=== PATIENT | female | born 1955 | race African-American/Black ===

== ENCOUNTER 2020-12-17 16:11 | Outpatient (NON) | payer MEDICARE, SELFPAY ==
[2020-12-17 17:39] LABS: Basophils Absolute Auto 0.03 K/mm3 (0.00-0.10); Basophils Percent Auto 0.4 % (0.0-1.0); Eosinophils Absolute Auto 0.05 K/mm3 (0.02-0.50); Eosinophils Percent Auto 0.7 % (1.0-6.0); Hematocrit 28.7 % (35.0-42.0); Hemoglobin 8.6 g/dL (11.7-13.8); Immature Granulocyte Absolute 0.07 K/mm3 (0.00-0.00); Immature Granulocyte Percent A 0.9 % (0.0-0.0); Lymphocytes Absolute Auto 1.04 K/mm3 (1.10-4.50); Mean Corpuscular Hemoglobin 23.7 pg (27.0-31.0); Mean Corpuscular Volume 79.1 fL (78.0-102.0); Mean Platelet Volume 9.4 fl (9.2-11.8); Monocytes Absolute Auto 0.57 K/mm3 (0.10-0.90); Monocytes Percent Auto 7.7 % (2.0-11.0); Neutrophils Absolute Auto 5.7 K/mm3 (1.7-7.2); Neutrophils Percent Auto 76.3 % (50.0-70.0); Nucleated Red Blood Cells Absolute Auto 0.02 K/mm3 (0.00-0.00); Nucleated Red Blood Cells Perc 0.3 % (0-0.0); Platelet Count Result 383 K/mm3 (150-420); Red Blood Count 3.63 M/mm3 (4.20-5.40); Red Cell Distribution Width 34.6 % (11.6-14.4); White Blood Count 7.4 K/mm3 (4.8-10.8)
[2020-12-17 18:07] LABS: Alanine Aminotransferase 54 U/L (14-59); Albumin Level 2.2 g/dL (3.4-5.0); Alkaline Phosphatase 265 U/L (46-116); Anion Gap 10 mmol/L (8-16); Aspartate Amino Transferase 12 U/L (15-37); Bilirubin,Total 0.4 mg/dL (0.00-1.00); Blood Urea Nitrogen 9 mg/dL (7-18); Calcium 7.8 mg/dL (8.5-10.1); Carbon Dioxide 29 mmol/L (21-32); Chloride 102 mmol/L (98-108); Estimated Glomerular Filt Rate > 60; Glucose 117 mg/dL (70-99); Magnesium 1.7 mg/dL (1.8-2.4); Osmolality Calculated 291 mOsm/kg (285-295); Phosphorus 3.6 mg/dL (2.6-4.7); Potassium 4.1 mmol/L (3.5-5.1); Sodium 141 mmol/L (136-145); Total Protein 6.1 g/dL (6.4-8.2)
== END 2020-12-17 16:12 | disposition home or self-care (01) ==
DX: C25.0 Malignant neoplasm of head of pancreas (principal); K28.9 Gastrojejunal ulcer, unspecified as acute or chronic, without hemorrhage or perforation
CPT/HCPCS: 80053; 83735; 84100; 85025; 85060

== ENCOUNTER 2021-04-07 09:02 | Inpatient (IN) | payer MEDICARE, MEDICAID, SELFPAY ==
[2021-04-07] VITALS (66 sets, daily range): BP systolic 107–158; BP diastolic 68–94; PULSE 37–58; RESP 9–21; TEMP 36.1–36.4; O2SAT 90–100; BMI 23.0
--- NOTE | ~2021-04-07 | XR_ITS ---
EXAMINATION: XR abdomen obstructive series DATE: 04/13/2021 11:31 INDICATION: Small bowel obstruction TECHNIQUE: Frontal supine and upright views of the abdomen were obtained. COMPARISON: 04/12/2021 FINDINGS: Nasogastric tube tip in proximal side port in the body of the stomach. Multiple surgical clips in rig ht upper quadrant which on prior CT appear to correspond to a prior right nephrectomy.. Pancreatic du ct stent extending transversely across the centrally upper abdomen. There is also a suture line proje cting just to the right of midline in the upper abdomen. Additional suture line in the right lower qu adrant. A couple short segment of persistently dilated gas-filled small bowel in the right upper quadrant and central abdomen. No pneumatosis or free intraperitoneal gas. Cardiomegaly. Linear discoid atelectasi s/scarring in the right middle and lower lung zones. IMPRESSION: 1. Nasogastric tube in the stomach. 2. A couple persistent dilated loops of small bowel consistent with small bowel obstruction. Reviewed, dictated and finalized at location B. TAL MEDIA DESIGNER
--- NOTE | ~2021-04-07 | CT_ITS ---
EXAMINATION: CT abdomen pelvis w con DATE: 04/07/2021 11:39 INDICATION: Generalized abdominal pain. TECHNIQUE: Computed tomography (CT) of the abdomen and pelvis was performed with 100 mL Omnipaque 350 intravenous contrast. Automated exposure control and iterative reconstruction technique were employe d. The dose-length product was 335.75 mGy-cm. COMPARISON: None. FINDINGS: The visualized portions of the lung bases demonstrate mild atelectasis. Emphysema is noted. There is a small right pleural effusion. The heart size is normal. There are coronary artery calcifi cations. There is a moderate-sized pericardial effusion. There is a 5 mm cyst in the liver. There are changes of cholecystectomy. There is a stent in the pancreatic duct. The spleen and adrenal glands a re normal. There are changes of right nephrectomy. There are cysts in left kidney measuring up to 1.8 cm. There is diverticulosis of the colon without evidence of diverticulitis. There are changes of ri ght hemicolectomy. There are dilated loops of small bowel in right abdomen with two transition points in close proximity. There is mild retroperitoneal lymphadenopathy. Body wall edema is noted. There i s trace ascites. There is scarring in anterior abdominal wall at the midline. There is a benign bone island in left superior pubic ramus. There is severe lower lumbar spondylosis. IMPRESSION: 1. Small bowel obstruction. 2. Mild retroperitoneal lymphadenopathy. 3. Small right pleural effusion. 4. Moderate-sized pericardial effusion. Reviewed, dictated and finalized at location B. T METAL ERECTOR
--- NOTE | ~2021-04-07 | XR_ITS ---
EXAMINATION: XR abdomen/kub 1V EXAM DATE: 04/08/2021 06:15 INDICATION: Follow-up SBO . TECHNIQUE: Frontal projection of the upper abdomen, frontal projection lower abdomen/pelvis for inter pretation. Correlation is made to CT abdomen pelvis from yesterday. FINDINGS: There are several loops of severely distended small bowel in the upper abdomen, small bowel obstruction. There is paucity of colonic stool. Contrast within the bladder. There are cholecystecto my clips. There are bony degenerative changes. IMPRESSION: Small bowel obstruction. Reviewed, dictated and finalized at location A. SING MACHINE OPERATOR IMPRESSION: Small bowel obstruction.
--- NOTE | ~2021-04-07 | XR_ITS ---
EXAMINATION: XR abdomen/kub 1V EXAM DATE: 04/09/2021 05:55 INDICATION: sbo, follow-up . TECHNIQUE: Frontal projection(s) of the abdomen for interpretation. Comparison is made to prior exami nation from 04/08/2021. FINDINGS: Feeding tube is in position. There is a pancreatic stent. Bowel anastomosis material and ri ght upper quadrant surgical clips. Several loops of severely distended small bowel again identified, does not appear significantly changed. Paucity of colonic stool and gas. IMPRESSION: Several persistent severely distended air-filled small bowel loops. Reviewed, dictated and finalized at location A. L ARMS REPAIRER IMPRESSION: Several persistent severely distended air-filled small bowel loops .
--- NOTE | ~2021-04-07 | XR_ITS ---
EXAMINATION: XR abdomen NG/feed tube insert DATE: 04/08/2021 14:47 INDICATION: Nasogastric tube placement TECHNIQUE: A supine view of the abdomen and lower chest was obtained for evaluation of feeding tube placement. COMPARISON: KUB dated 04/08/[address] dated 04/07/2021 FINDINGS: Nasogastric tube tip in proximal side port in the body of the stomach. Cholecystectomy clips in the r ight upper quadrant. Pancreatic duct stent in expected position extending transversely across the upp er abdomen. There is also an anastomotic suture line in the mid upper abdomen. Persistent dilated gas -filled loops of small bowel in the right upper quadrant consistent with small bowel obstruction. Min imal curvilinear atelectasis/scarring at the right costophrenic angle. Globular enlargement of the ca rdiac silhouette corresponding to a moderate-sized pericardial effusion on prior CT. IMPRESSION: 1. Nasogastric tube in stomach. 2. Persistent dilated gas-filled small bowel in the right upper quadrant consistent with small bowel obstruction. 3. Globular enlargement of the cardiac silhouette corresponding to moderate sized pericardial effusio n on prior CT. Reviewed, dictated and finalized at location A. SPEED PRINTER OPERATOR IMPRESSION: 1. Nasogastric tube in stomach. 2. Persistent dilated gas-filled small bowel in the right upper quadrant consis tent with small bowel obstruction. 3. Globular enlargement of the cardiac silhouette corresponding to moderate siz ed pericardial effusion on prior CT.
--- NOTE | ~2021-04-07 | XR_ITS ---
EXAMINATION: XR abdomen NG/feed tube insert DATE: 04/12/2021 18:59 INDICATION: Nasogastric tube placement. TECHNIQUE: A supine view of the abdomen was obtained. COMPARISON: Abdomen radiographs at 9:14 AM FINDINGS: There are persistently dilated loops of small bowel. The colon is decompressed. The nasogas tric tube tip is in the stomach. There are surgical clips in right abdomen. There is a stent in pancr eatic duct. IMPRESSION: 1. Nasogastric tube tip in the stomach. 2. Persistently dilated small bowel, consistent with small bowel obstruction. Reviewed, dictated and finalized at location A. R FILTRATION TECHNICIAN
--- NOTE | ~2021-04-07 | XR_ITS ---
EXAMINATION: XR abdomen/kub 1V DATE: 04/10/2021 05:54 INDICATION: Small bowel obstruction. TECHNIQUE: A supine view of the abdomen was obtained. COMPARISON: CT abdomen and pelvis 04/07/2021 FINDINGS: There are dilated loops of small bowel. The colon is decompressed. The nasogastric tube tip is in the stomach. There is a stent in the pancreatic duct. Surgical clips in the right upper quadra nt are likely from cholecystectomy. There is a staple line at the stomach. IMPRESSION: 1. Persistently dilated small bowel, consistent with small bowel obstruction. Reviewed, dictated and finalized at location A. CTION FURNACE OPERATOR
--- NOTE | ~2021-04-07 | XR_ITS ---
EXAMINATION: XR abdomen obstructive series EXAM DATE: 04/12/2021 09:19 INDICATION: Follow-up on small-bowel obstruction. TECHNIQUE: Frontal upright projection of the upper abdomen, frontal projection of the lower abdomen f or interpretation. Comparison is made to prior examination from 04/11/2021, 04/10/2021, 04/09/2021. FINDINGS: Feeding tube no longer identified. Several loops of moderately distended small bowel, impr eliezer compared to the oldest available x-ray. Small bowel obstruction as etiology was identified on CT . No free intraperitoneal gas. Pancreatic stent, surgical clips and bowel anastomosis material again noted. IMPRESSION: Couple of moderately distended small bowel loops, mild improvement compared to initial e xam. Reviewed, dictated and finalized at location A. CLOSING MACHINE OPERATOR IMPRESSION: Couple of moderately distended small bowel loops, mild improvement compared to initial exam.
--- NOTE | ~2021-04-07 | XR_ITS ---
EXAMINATION: XR abdomen obstructive series DATE: 04/11/2021 08:49 INDICATION: Small bowel obstruction. TECHNIQUE: Upright and supine views of the abdomen were obtained. COMPARISON: CT abdomen and pelvis 04/07/2021 FINDINGS: There are dilated loops of small bowel. The colon is decompressed. No free intraperitoneal gas. The nasogastric tube tip is in the stomach. Surgical clips in the right upper quadrant are likel y from cholecystectomy. There is a stent in the pancreatic duct. There are staple lines of bowel and stomach. IMPRESSION: 1. Persistently dilated small bowel, consistent with small bowel obstruction. Reviewed, dictated and finalized at location A. ESS CASHIER
--- NOTE | 2021-04-07 09:45 | ECG_ITS ---
Measurements Intervals [place] Rate: 43 P: 53 SC: 153 QRS: 58 QRSD: 94 T: 135 QT: 491 QTc: 417 Interpretive Statements SINUS BRADYCARDIA T WAVE ABNORMALITY IN LATERAL LEADS- CONSIDER ISCHEMIA BASELINE ARTIFACT- V1-V4 ABNORMAL ECG Electronically Signed On 04-07-2021 11:41:38 INSURANCE EXECUTIVE by Jethro Leo D.O.
--- NOTE | 2021-04-07 09:49 | ED.ABDPAIN ---
HPI - Abdominal Pain General Chief Complaint: Altered Mental Status Stated Complaint: AMS,WEAKNESS Time Seen by Provider: 04/07/21 09:15 Source: patient and family Mode of arrival: EMS Limitations: no limitations History of Present Illness HPI narrative: Patient is a 65-year-old female lower abdominal pain, 6 out of 10, nonradiating accompanied by nausea and vomiting that started today. Patient also complained of chest pain, midsternal, tightness, 3 out of 10, nonradiating also started today. According to a family member patient was working, felt weak and when they checked her blood pressure it was in the 80s over 40s accompanied by bradycardia with a heart rate in the 40s. Patient denies any nausea, vomiting, diarrhea, fever or chills. Related Data Allergies Allergy/AdvReac Type Severity Reaction Status Date / Time No Known Allergies Allergy Verified 04/07/21 09:27 Review of Systems Review of Systems: All systems reviewed & are unremarkable except as noted in HPI and below Constitutional: Constitutional: Denies body ache(s), Denies chills, Denies excessive sweating, Denies fatigue, Denies fever(s), Denies headache(s), Denies lethargy, Denies malaise and Denies weight loss Eyes: Eyes: Denies blurry vision, Denies change in vision and Denies loss of vision ENT: Denies dizziness, Denies ear discharge, Denies headache(s), Denies lip swelling, Denies epistaxis, Denies nasal congestion, Denies neck pain, Denies throat swelling and Denies tongue swelling Cardiovascular: Cardiovascular: Denies diaphoresis, Denies rapid heart rate, Denies edema, Denies irregular heart rhythm, Denies lightheadedness, Denies palpitations, Denies dyspnea and Denies dyspnea on exertion Respiratory: Respiratory: Denies chest congestion, Denies cough, Denies hemoptysis, Denies dyspnea and Denies dyspnea on exertion Gastrointestinal: Gastrointestinal: Denies melena, Denies hematochezia, Denies diarrhea, Denies nausea, Denies vomiting and Denies hematemesis Musculoskeletal: Musculoskeletal: Denies abnormal gait, Denies deformity, Denies joint swelling, Denies limited range of motion, Denies neck pain and Denies numbness Neurologic: Denies Abnormal speech present, Denies abnormal gait, Denies confusion, Denies headache(s), Denies focal weakness, Denies loss of vision, Denies numbness, Denies Other visual disturbances and Denies Sensory deficit (Neuro) Psychiatric: Psychiatric: Denies confusion, Denies depression, Denies auditory hallucinations, Denies homicidal ideation and Denies suicidal ideation Endocrine: Endocrine: Denies cold intolerance, Denies excessive sweating, Denies fatigue, Denies heat intolerance and Denies palpitations Hematologic/Lymphatic: Hematologic/Lymphatic: Denies easy bleeding and Denies easy bruising Allergic/Immunologic: Allergic/Immunologic: Denies lip swelling, Denies throat swelling and Denies tongue swelling PMFSH Comments Past medical history: Whipple procedure, nephrectomy, hypertension, multiple cancers , brain surgery Family history: Hypertension diabetes Social history: Non-smoker no EtOH or drug use Exam Const: General: cooperative, comfortable, no acute distress, well developed, alert and awake; No confusion Orientation/consciousness: oriented to person, oriented to place, oriented to time, patient oriented x3 and No confusion Limitations: no limitations Other: Frail HENMT: Head: normal to inspection, normocephalic and atraumatic Ears: hearing grossly normal bilaterally, TM normal on the right and TM normal on the left General nose exam: Normal external nose present, Normal nares present and No nasal discharge present Face and sinus: normal facial exam Mouth: Yes Normal oral and palatal mucosa present, Yes lip normal, Yes tongue normal and Yes oropharynx normal Throat: posterior oropharynx normal, tonsils normal and uvula midline Eyes: General: appearance normal, both eyes and all related structures Pupils: Equal, rou
[2021-04-07] MEDS: PROMETHAZINE HCL 25 MG/ML AMPUL 12.5 MG IV PUSH (10:10)
[2021-04-07] MEDS: LACTATED RINGERS 1,000 ML 999 ML IV CONT (10:13)
[2021-04-07 10:31] LABS: Basophils Percent Auto 0.5 % (0.2-1.2); Eosinophils Percent Auto 0.7 % (0-4.4); Hematocrit 35.1 % (37.0-47.0); Hemoglobin 11.3 g/dL (12.0-15.0); Immature Granulocyte Absolute 0.03 K/mm3 (0.00-0.031); Immature Granulocyte Percent A 0.7 % (0-0.5); Lymphocytes Absolute Auto 0.85 K/mm3 (0.9-3.2); Lymphocytes Percent Auto 20.5 % (18.3-44.2); Mean Corpuscular HGB Conc 32.2 g/dl (32-36); Mean Corpuscular Hemoglobin 27.4 pg (26-34); Mean Corpuscular Volume 85.2 fl (80-100); Mean Platelet Volume 10.5 fl (7.4-10.4); Monocytes Absolute Auto 0.3 K/mm3 (0.1-0.6); Monocytes Percent Auto 7.5 % (2.6-8.5); Neutrophils Absolute Auto 2.9 K/mm3 (1.3-6.7); Neutrophils Percent Auto 70.1 % (45.5-73.1); Platelet Count Result 190 k/mm3 (150-375); Red Blood Count 4.12 M/mm3 (4.2-5.4); Red Cell Distribution Width 17.4 % (11.5-14.5); White Blood Count 4.1 K/mm3 (4.5-10.0)
[2021-04-07 10:40] LABS: Prothrombin Time 13.5 Seconds (11.1-14.7)
[2021-04-07 10:41] LABS: Partial Thromboplastin Time 34.3 SECONDS (22.3-36.8)
[2021-04-07] MEDS: HYDROmorphone HCL INJ (*CRX) 1 MG/ML SYR 0.5 MG IV PUSH ×3 (10:46→22:25)
[2021-04-07 10:48] LABS: Alanine Aminotransferase 76 U/L (4-35); Albumin Level 3.8 g/dL (3.5-5.1); Alkaline Phosphatase 191 U/L (38-126); Anion Gap 7 mmol/L (8-16); Aspartate Amino Transferase 61 U/L (14-36); Bilirubin,Total 0.4 mg/dL (0.2-1.3); Blood Urea Nitrogen 12 mg/dL (7-17); Calcium 8.9 mg/dL (8.4-10.2); Carbon Dioxide 25 mmol/L (22-30); Chloride 110 mmol/L (98-107); Estimated CRCL calculation 41 ml/min; Estimated Glomerular Filt Rate 55; Glucose 125 mg/dL (65-110); Lipase 69 U/L (23-300); Potassium 3.5 mmol/L (3.4-5.0); Sodium 142 mmol/L (137-145)
[2021-04-07 10:58] LABS: Troponin I < 0.012 ng/mL (0.000-0.034)
--- NOTE | 2021-04-07 11:29 | PC.NURSE ---
Assumed care of pt. Bedside report done. Pt lethargic, arouses to voice. HR regular at 44bpm. Pt being taken to CT at this time. Daughter at bedside.
--- NOTE | 2021-04-07 16:02 | PC.NURSE ---
FOXER with GI at bedside seeing patient. Pt is currently refusing NG tube. Pt not experiencing any nausea or vomiting. Pt states she has had an NG tube before, does not want one now. FOXER explained the purpose and encouraged it for treatment and pt continues to refuse at this time.
[2021-04-07] MEDS: LACTATED RINGERS 1,000 ML 100 ML IV CONT (16:12)
--- NOTE | 2021-04-07 16:15 | PM.CNGS ---
Assessment and Plan Assessment and plan (1) Small bowel obstruction: Code(s): K56.609 - Unspecified intestinal obstruction, unspecified as to partial versus complete obstruction Status: Acute Assessment and Plan: This is the reason for our consultation. CT scan reviewed and discussed in detail with the patient. There is evidence of a small bowel obstruction that is likely related to intra-abdominal adhesions. She has had multiple abdominal surgeries in the past, including most recently having a Whipple procedure in November. She is still having abdominal pain on my evaluation in the ER. This would likely resolve without surgery, but the patient is currently refusing conservative treatment with an NG tube. Her noncompliance limits our ability to treat her appropriately, and we discussed at length the importance of NG tube decompression at this time. We will not be providing surgical treatment unless she complies with medical treatment. Dr. Schwartz will also be evaluating the patient and discussing her treatment plan. May consider a Gastrografin small bowel follow through to further evaluate the obstruction. For now, continue NPO status, IV fluids, IV analgesics, and strongly encourage compliance of the NG tube. Thank you for allowing us to see the patient in consultation and we will continue to follow along with you. 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 Bobo Westbrook. She is still dealing with a small abdominal wound that appears stable. Continue local wound care. ER physician has attempted contacting [facility] for possible transfer and appears there is no current bed availability. (3) Bradycardia: Code(s): R00.1 - Bradycardia, unspecified Status: Acute Assessment and Plan: Heart rate in the 40's with stable blood pressure. Chest pain resolved. Troponin negative x 1. (4) Pericardial effusion: Code(s): I31.3 - Pericardial effusion (noninflammatory) Status: Acute Assessment and Plan: Moderate-sized pericardial effusion noted on imaging of an unclear etiology. Additional Plan I have discussed the patient's case and plan of care with Dr. Schwartz. History of Present Illness Consult details Consult date: 04/07/21 Reason for consult: other (Small bowel obstruction) Requesting physician: Larry Jarrett MD Narrative: This is a 65 year-old female with a history of COPD and hypertension, who presented to the ER with complaints of abdominal pain, midsternal chest pain, and generalized weakness. She reports developing lower abdominal pain and nausea this morning while at work. She also reports generalized weakness and diaphoresis. She felt the need to defecate and went to the bathroom. She was unable to have a normal bowel movement and began having severe cramping abdominal pain that was coming in waves and midsternal chest pain. No shortness of breath, difficulty breathing, radiating pain, or vomiting. She works at a [employer] and had her coworker check her vital signs. Reportedly, she had a blood pressure of 80/40's and a heart rate in the 40's. She then presented to the ER for further evaluation. In the ER, her blood pressure has been stable but her heart rate was initially 37. EKG showed sinus bradycardia with T wave abnormality with a heart rate of 43. Troponin normal x 1. CT scan of the abdomen and pelvis showed a small bowel obstruction, moderate-sized pericardial effusion, small right pleural effusion, and mild retroperitoneal lymphadenopathy. Our service was consulted by the ED physician for the findings of the small bowel obstruction. The patient is now seen in the ER. Her heart rate on the metal furrer is still in the 40's and her blood pressure remains stable. Per nursing, she was
--- NOTE | 2021-04-07 18:00 | PM.IMHP ---
H&P: HPI History of Present Illness Date/Time: 04/07/21 18:00 Chief Complaint: Chest and abdominal pain Narrative: This is a very pleasant 65-year-old female with history of COPD, hypertension, and multiple malignancies (kidney, thyroid, and lung cancer) who presented to the emergency department earlier today via EMS from her place of employment for evaluation of chest and abdominal pain. She was in her usual state of health when she got up early this morning and went to work. 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 She went to the bathroom and she held the urge to defecate however she was not able to move her bowels. Additionally she started to feel a pressure or gas-like sensation in her midsternal chest region. While walking out of the bathroom she felt lightheaded, weak, and somewhat diaphoretic. Coworkers took her vital signs and reportedly she was hypotensive with blood pressures in the 80s over 40s and bradycardic with a heart rate in the 40s. With IV fluid rehydration her blood pressures have since stabilized however she continues to be bradycardic. Patient reports to me that her baseline heart rate is somewhere in the 60s or 70s. EKG shows some nonspecific T wave changes and bradycardia. CT scan of the abdomen pelvis showed a small bowel obstruction with a moderate size pericardial effusion and she is being admitted in this setting. At the time my evaluation she feels much better but she continues to have mild abdominal discomfort that comes in waves. She has been passing a small amount of gas but she has not had a bowel movement since arrival. She has history of bowel obstruction in March 2019 requiring adhesiolysis. More recently she had a Whipple procedure due to findings of a pancreatic cystic lesion with concerns for possible malignancy (pathology was benign) done in November 2020 at [place] which was complicated by a postoperative wound infection leaving a large open abdominal wound treated with wound VAC. She denies syncope, fever, chills, sweats, exertional chest pain, orthopnea, PND, palpitations, shortness of breath, and vomiting. Review of Systems Review of Systems: 12 systems were reviewed. No cold or flu symptoms. She denies sick contacts. Since her Whipple she has had lower energy than normal. She reports having several large volume stools yesterday which is unusual for her as she is typically constipated. They were transmission inspector in nature than usual. No blood or mucus in the stool. Except as document, all other systems were reviewed and are negative. [facility] Past Medical History Medical History (Updated 04/07/21 @ 22:18 by Sienna Larsen PA-C) Arteriovenous malformation of brain Cancer of right lung Status post resection Chronic obstructive pulmonary disease History of kidney cancer Status post right nephrectomy. History of small bowel obstruction History of thyroid cancer Status post thyroidectomy. Hypertension Surgical History Surgical History (Updated 04/07/21 @ 22:07 by Sienna Larsen PA-C) History of cholecystectomy History of colectomy History of craniotomy Resection of AV malformation. History of exploratory laparotomy (03/2019) SBO with reported adhesiolysis at [facility]. History of right nephrectomy History of thyroidectomy History of tubal ligation History of Whipple procedure (11/2020) [facility] - due to a reportedly benign pancreatic cyst. Family History Family History Other Breast cancer Carcinoma of colon Daughter Breast cancer Social History Social History (Updated 04/07/21 @ 22:08 by Sienna Larsen PA-C) Social History: Surrogate decision-maker: Bobo Bush and Toni Bush, children. CODE STATUS: Full code. Smoking packs per day: 1 Smoking cigarettes per day: 20.0 Years smoked: 20 Smoking pack-years: 20.00 Smoking status: Former
--- NOTE | 2021-04-07 19:40 | PC.NURSE ---
Called pharmacy to ask for silver gel for patient's ordered wound care. Pharmacy states medication order needs to be put in. Will contact inpatient team for order.
--- NOTE | 2021-04-07 22:14 | ADMGEN ---
This patient, Missy Bush, was admitted to IMU Room 202-01. Patient/family oriented to hospital policies and general routines including ID bracelet, bed and alarms, visiting hours, pain management, procedures, bathroom and other care routines, personal items, smoking policy, room service/diet, and visiting hours. Information on how to activate the Rapid Response Team has been discussed. Patient/Family are encouraged to report perceived risks to care and to ask questions if they do not understand what they are told or what they should do.
[2021-04-07] MEDS: SILVERGEL (ELTA) 45 ML 1 APPLIC TOPICAL (22:33)
[2021-04-08] VITALS (10 sets, daily range): BP systolic 103–135; BP diastolic 64–79; PULSE 45–52; RESP 16–20; TEMP 35.7–36.4; O2SAT 94–100
--- NOTE | 2021-04-08 | ECHO_ITS ---
Patient Info Name: Missy Bush Age: 65 years : 1955 Gender: Female Ht: 65 in Wt: 138 lbs BSA: 1.70 m2 HR: 47 bpm BP: 135 / 72 mmHg Heart Rhythm: Bradycardia Technical Quality: Fair Exam Date: 04/08/2021 11:31 AM Exam Location: [facility] Patient Status: Inpatient Admit Date: 04/07/2021 Staff Ordering Physician: Nirav Villatoro MD Rapid Transit Operator: Sharlene Ramirez RDCS Attending Provider: Terrance Lawson MD Referring Physician: Irving KIM; Exam Type: CA echo doppler color flow Study Info Indications - Bradycardia, Pericardial effusion Complete two-dimensional, color flow and Doppler transthoracic echocardiogram is performed. Summary 1. Complete two-dimensional, color flow and Doppler transthoracic echocardiogram is performed. 2. Left ventricular chamber dimension is normal. 3. Left ventricular systolic function is normal, estimated at 65-70%. 4. There is mildly increased left ventricular wall thickness. 5. The left ventricular diastolic function is grade I diastolic dysfunction. 6. Left atrial chamber dimension is mildly enlarged. 7. There is mild mitral valve regurgitation. 8. There is mild tricuspid valve regurgitation. 9. There is mild pulmonic regurgitation. 10. There is mild to moderate pericardial effusion without clear evidence of tamponade physiology. Left Ventricle Left ventricular chamber dimension is normal. Left ventricular systolic function is normal, estimated at 65-70%. There is mildly increased left ventricular wall thickness. The left ventricular diastolic function is grade I diastolic dysfunction. Right Ventricle Right ventricular chamber dimension is normal. Right ventricular systolic function is normal. Left Atria Left atrial chamber dimension is mildly enlarged. Right Atria Right atrial chamber dimension is normal. Atrial Septum Intact interatrial septum visualized by color flow imaging. Aortic Valve The aortic valve is trileaflet. There is mild aortic valve sclerosis. There is no aortic valve stenosis. There is trace aortic valve regurgitation. Pulmonic Valve The pulmonic valve is normal. There is no pulmonic valve stenosis. There is mild pulmonic regurgitation. Mitral Valve The mitral valve has normal leaflets. There is no mitral valve stenosis. There is mild mitral valve regurgitation. Tricuspid Valve The tricuspid valve leaflets are normal. There is no significant tricuspid valve stenosis. There is mild tricuspid valve regurgitation. No pulmonary hypertension, estimated pulmonary arterial systolic pressure is 26 mmHg. Pericardium/Pleural The pericardium appears normal. There is mild to moderate pericardial effusion without clear evidence of tamponade physiology. Aorta The aortic root size at the sinus of Valsalva is normal. Left Ventricular Outflow Tract Name Value Normal LVOT 2D LVOT Diameter 2.0 cm LVOT Doppler LVOT Peak Gradient 3 mmHg LVOT Mean Gradient 1 mmHg LVOT VTI 21 cm LVOT VTI/AV VTI Rat
[2021-04-08] MEDS: LACTATED RINGERS 1,000 ML 100 ML IV CONT (02:42)
[2021-04-08] MEDS: HYDROmorphone HCL INJ (*CRX) 1 MG/ML SYR 0.5 MG IV PUSH ×3 (02:43→12:17)
[2021-04-08 05:17] LABS: Basophils Percent Auto 0.2 % (0.2-1.2); Eosinophils Absolute Auto 0.1 K/mm3 (0-0.3); Eosinophils Percent Auto 1.2 % (0-4.4); Hematocrit 35.9 % (37.0-47.0); Hemoglobin 11.7 g/dL (12.0-15.0); Immature Granulocyte Absolute 0.01 K/mm3 (0.00-0.031); Immature Granulocyte Percent A 0.2 % (0-0.5); Lymphocytes Percent Auto 25.9 % (18.3-44.2); Mean Corpuscular HGB Conc 32.6 g/dl (32-36); Mean Corpuscular Hemoglobin 27.1 pg (26-34); Mean Corpuscular Volume 83.1 fl (80-100); Mean Platelet Volume 10.9 fl (7.4-10.4); Monocytes Absolute Auto 0.3 K/mm3 (0.1-0.6); Monocytes Percent Auto 7.8 % (2.6-8.5); Neutrophils Absolute Auto 2.7 K/mm3 (1.3-6.7); Neutrophils Percent Auto 64.7 % (45.5-73.1); Platelet Count Result 203 k/mm3 (150-375); Red Blood Count 4.32 M/mm3 (4.2-5.4); White Blood Count 4.2 K/mm3 (4.5-10.0)
[2021-04-08 05:32] LABS: Anion Gap 3 mmol/L (8-16); Blood Urea Nitrogen 8 mg/dL (7-17); Calcium 9.1 mg/dL (8.4-10.2); Carbon Dioxide 26 mmol/L (22-30); Chloride 108 mmol/L (98-107); Estimated CRCL calculation 49 ml/min; Estimated Glomerular Filt Rate > 60; Glucose 105 mg/dL (65-110); Potassium 3.3 mmol/L (3.4-5.0); Sodium 137 mmol/L (137-145)
[2021-04-08 09:18] LABS: Magnesium 1.9 mg/dL (1.6-2.3)
--- NOTE | 2021-04-08 09:58 | PM.CNCAR ---
Assessment and Plan Assessment and plan (1) Bradycardia: Code(s): R00.1 - Bradycardia, unspecified Status: Acute Assessment and Plan: She states that her heart rate is generally in the 60s and 70s. Possibly related to vagal tone. I do not see where her thyroid has been evaluated so will check a TSH and free T4 level. Avoid SA/AV darren agents. 2D echocardiogram Doppler will be ordered and reviewed both for the bradycardia as well as pericardial effusion. Will continue to monitor on telemetry. She is stable for transfer to Medicine with telemetry (2) Pericardial effusion: Code(s): I31.3 - Pericardial effusion (noninflammatory) Status: Acute Assessment and Plan: 2D echocardiogram Doppler to evaluate. No evidence of tamponade clinically (3) Hypertension: Code(s): I10 - Essential (primary) hypertension Status: Acute Assessment and Plan: Blood pressure generally controlled at this point. Again continue to avoid AV and SA darren agents. (4) Chronic obstructive pulmonary disease: Code(s): J44.9 - Chronic obstructive pulmonary disease, unspecified Status: Acute (5) Small bowel obstruction: Code(s): K56.609 - Unspecified intestinal obstruction, unspecified as to partial versus complete obstruction Status: Acute Assessment and Plan: Per general surgery (6) Hypokalemia: Code(s): E87.6 - Hypokalemia Status: Acute Assessment and Plan: KCL 40 mEq IV x1 History of Present Illness History of Present Illness Consult date/time: 04/08/21 09:58 Requesting physician: Larry Jarrett MD Consult reason: Other (Bradycardia, hypotension) Reason For Visit: Small bowel obstruction,bradycardia,hypotension Narrative: Reason consultation: Bradycardia, hypotension Date of service 04/08/2021 Requesting provider: Dr. Jarrett History: Patient is a 65-year-old female who does not have known cardiac history that I am aware of. She does have a history of multiple malignancies as well as COPD and hypertension who presents to the hospital with acute onset of abdominal and chest pain. She was at work where she would suddenly developed abdominal pain. She also had some chest tightness at the time. She tried to go the bathroom but was not able to. She became lightheaded and sweaty and came to the attention of her coworkers. She had her blood pressure checked and it was 80s over 40s and she had a heart rate in the 40s. She came to the hospital for further workup and evaluation. She is found have a small bowel obstruction. She was also in sinus bradycardia with heart rate in the 40s. She currently denies any chest pain. She had an no worsening shortness of breath but does have baseline dyspnea related to her COPD. She does complain of dizziness which she relates to some pain medications he has been receiving. Her abdomen is still hurting. She denies any syncope, paroxysmal nocturnal dyspnea, orthopnea or significant edema at this point. She has had edema following her most recent operation at [place] that this has predominantly resolved. Review of Systems Review of Systems: All systems reviewed & are unremarkable except as noted in HPI and below Constitutional: Constitutional: Denies weakness Eyes: Eyes: Denies blurry vision ENT: Reports Normal hearing present Cardiovascular: Cardiovascular: Reports chest pain Respiratory: Respiratory: Reports dyspnea Gastrointestinal: Gastrointestinal: Reports abdominal pain Genitourinary: Genitourinary: Denies hematuria Musculoskeletal: Musculoskeletal: Denies neck pain Integumentary/Breasts: Skin/Breast: Denies dry skin Neurologic: Denies headache(s) Psychiatric: Psychiatric: Denies anxiety and Denies confusion Endocrine: Endocrine: Denies excessive sweating Hematologic/Lymphatic: Hematologic/Lymphatic: Denies easy bleeding Allergic/Immunologic: Allergic/Immunologic: Denies GI upset
[2021-04-08] MEDS: ONDANSETRON INJ 4 MG/2 ML VIAL IV PUSH ×2 (10:16→21:03)
[2021-04-08] MEDS: ENOXAPARIN 40 MG/0.4 ML SYRINGE SUB-Q (10:16)
[2021-04-08] MEDS: POTASSIUM CHLORIDE INJ 40 MEQ in SODIUM CHLORIDE 0.9% IV 500 ML 130 MEQ IVPB (10:16)
--- NOTE | 2021-04-08 11:18 | PCWOUND ---
WOCN NOTE received consult for abdominal wound. Patient was seen by Nicole Fermin NP and Dr. Ren Schwartz. Dr. Schwartz put in wound care orders for Silver gel application daily to the abdominal wound. No need for wound care nurses at this time.
[2021-04-08 11:38] LABS: T4 Thyroxine 7.55 ug/dL (5.53-11.0)
--- NOTE | 2021-04-08 12:59 | PM.IMPN ---
Progress Note: A&P Assessment and Plan (1) Small bowel obstruction: Code(s): K56.609 - Unspecified intestinal obstruction, unspecified as to partial versus complete obstruction Status: Acute Assessment and Plan: On conservative treatment. Continue to refuse NG tube Reiterated importance of NG tube placement with patient to the visit. General surgery has been consulted and following. (2) Bradycardia: Code(s): R00.1 - Bradycardia, unspecified Status: Acute Assessment and Plan: Persistent sinus bradycardia avoid AV darren blockers. Echocardiogram ordered for pericardial effusion. Discussed with cardiology (3) Pericardial effusion: Code(s): I31.3 - Pericardial effusion (noninflammatory) Status: Acute Assessment and Plan: No signs of tamponade. Echocardiogram ordered (4) Hypertension: Code(s): I10 - Essential (primary) hypertension Status: Acute Assessment and Plan: Blood pressures were reviewed. And remained stable Subjective Date/time seen: 04/08/21 12:59 Interval history: HPI:This is a very pleasant 65-year-old female with history of COPD, hypertension, and multiple malignancies (kidney, thyroid, and lung cancer) who presented to the emergency department earlier today via EMS from her place of employment for evaluation of chest and abdominal pain. She was in her usual state of health when she got up early this morning and went to work. 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 She went to the bathroom and she held the urge to defecate however she was not able to move her bowels. Additionally she started to feel a pressure or gas-like sensation in her midsternal chest region. While walking out of the bathroom she felt lightheaded, weak, and somewhat diaphoretic. Coworkers took her vital signs and reportedly she was hypotensive with blood pressures in the 80s over 40s and bradycardic with a heart rate in the 40s. With IV fluid rehydration her blood pressures have since stabilized however she continues to be bradycardic. Patient reports to me that her baseline heart rate is somewhere in the 60s or 70s. EKG shows some nonspecific T wave changes and bradycardia. CT scan of the abdomen pelvis showed a small bowel obstruction with a moderate size pericardial effusion and she is being admitted in this setting. At the time my evaluation she feels much better but she continues to have mild abdominal discomfort that comes in waves. She has been passing a small amount of gas but she has not had a bowel movement since arrival. She has history of bowel obstruction in March 2019 requiring adhesiolysis. 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 She denies syncope, fever, chills, sweats, exertional chest pain, orthopnea, PND, palpitations, shortness of breath, and vomiting. 04/08/2021 reports abdominal distension no bowel movement nausea and abdominal pain. Discussed NG tube placement and she wants to think about it Review of Systems Review of Systems: All systems reviewed & are unremarkable except as noted in HPI and below (HPI) Exam Narrative: General: Well-developed female in semi-Cornelius position in bed in no acute distress. HEENT: PERRL, EOMI. Sclerae anicteric. Oral mucosa moist. Oropharynx clear. Neck: Supple. Nontender Respiratory: Lungs are clear to auscultation bilaterally. Cardiovascular: Regular rate and rhythm with S1-S2. No murmur, rub, or gallop. Gastrointestinal: Abdomen is soft and distended, mildly tender to palpation throughout. Quiet bowel sounds. Large midline defect from previous open abdominal wound with a sm
--- NOTE | 2021-04-08 14:03 | PM.PNGS ---
Progress Note: A&P Assessment and Plan (1) Small bowel obstruction: Code(s): K56.609 - Unspecified intestinal obstruction, unspecified as to partial versus complete obstruction Status: Acute Assessment and Plan: NG tube was deferred last night due to patient's request. KUB this morning suggested persistent small bowel obstruction. She is having more abdominal pain and nausea today, no signs of bowel function, and appears more distended. Will order an NG tube, patient now agreeable. Continue NPO status and IV fluids. Repeat KUB tomorrow. 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 Westbrook. Small open abdominal wound, which appears stable. Continue local wound care. (3) Bradycardia: Code(s): R00.1 - Bradycardia, unspecified Status: Acute Assessment and Plan: Cardiology consulted. Echo ordered today for bradycardia and pericardial effusion. HR in 40's on my exam. (4) Pericardial effusion: Code(s): I31.3 - Pericardial effusion (noninflammatory) Status: Acute Additional Plan I have discussed the plan of care with Dr. Schwartz. Subjective Subjective Date/Time Seen: 04/08/21 14:03 Patient reports: still having pain, no flatus, no bowel movement and nausea Interval history: Patient seen and examined. She is tearful and appears restless and uncomfortable when entering the room. She reports having worsening abdominal pain through the day today. She feels more bloated and is nauseated. She has not had any vomiting. She denies flatus. Review of Systems Review of Systems: All systems reviewed & are unremarkable except as noted in HPI and below Gastrointestinal: Gastrointestinal: Reports as per HPI and Reports no additional gastrointestinal complaints Exam Const: General: awake, acute distress moderate (abdominal pain, tearful) and uncomfortable Orientation/consciousness: patient oriented x3 Cardio: Rate: bradycardic Rhythm: regular rhythm GI: Inspection: distended GI Palp: Yes Firmness to palpation present (GI), Yes Tenderness to palpation present (GI) (throughout), Yes Guarding due to palpation present (GI), Yes No hepatosplenomegaly present and No Rebound tenderness present Auscultation: absent bowel sounds Skin: General skin exam: normal color Neuro: General: moves all extremities and no focal motor deficits Extrem: General: normal to inspection Psych: Mental Status: mental status grossly normal Insight: Good insight present (Psych) Judgement: Good judgement present (Psych) Objective Data Vital Signs Vital Signs: Vital Signs - 24 hr 04/07/21 14:15 04/07/21 14:30 04/07/21 14:31 Temperature Pulse Rate 44 L 45 L 46 L Respiratory Rate 10 L 9 L 10 L Blood Pressure 136/82 Pulse Oximetry 99 99 98 04/07/21 14:45 04/07/21 15:00 04/07/21 15:01 Temperature Pulse Rate 44 L 48 L Respiratory Rate 11 L 16 12 Blood Pressure 111/93 H Pulse Oximetry 96 93 100 04/07/21 15:15 04/07/21 15:33 04/07/21 15:52 Temperature Pulse Rate 48 L 44 L 48 L Respiratory Rate 10 L 11 L 13 Blood Pressure Pulse Oximetry 99 98 100 04/07/21 16:00 04/07/21 16:01 04/07/21 16:15 Temperature Pulse Rate 56 L 47 L 58 L Respiratory Rate 17 12 10 L Blood Pressure 158/93 H Pulse Oximetry 100 100 04/07/21 16:30 04/07/21 16:31 04/07/21 16:45 Temperature Pulse Rate 50 L 56 L 47 L Respiratory Rate 16 16 11 L Blood Pressure 134/84 Pulse Oximetry 100 99 97 04/07/21 17:00 04/07/21 17:01 04/07/21 17:15 Temperature Pulse Rate 51 L 56 L 49 L Respiratory Rate 11 L 17 9 L Blood Pressure 148/91 H Pulse Oximetry 98 100 98 04/07/21 17:31 04/07/21 18:05 04/07/21 18:15 Temperature Pulse Rate 50 L 50 L 50 L Respiratory
[2021-04-08] MEDS: HYDROmorphone HCL INJ (*CRX) 1 MG/ML SYR IV PUSH ×2 (15:24→21:03)
[2021-04-08] MEDS: SILVERGEL (ELTA) 45 ML 1 APPLIC TOPICAL (15:26)
[2021-04-08 16:20] LABS: Lactic Acid Reflex 1.3 mmol/L (0.7-2.1)
[2021-04-08] MEDS: KCL 40 MEQ/D5/0.9% SOD CHL 1,000 ML 100 ML IV CONT (16:58)
[2021-04-09] VITALS (11 sets, daily range): BP systolic 123–133; BP diastolic 63–80; PULSE 52–61; RESP 16–20; TEMP 35.9–36.9; O2SAT 94–96
[2021-04-09] MEDS: ONDANSETRON INJ 4 MG/2 ML VIAL IV PUSH ×3 (01:10→20:17)
[2021-04-09] MEDS: KCL 40 MEQ/D5/0.9% SOD CHL 1,000 ML 100 ML IV CONT ×2 (03:02→13:53)
[2021-04-09 07:01] LABS: Basophils Percent Auto 0.2 % (0.2-1.2); Eosinophils Percent Auto 0.2 % (0-4.4); Hematocrit 37.3 % (37.0-47.0); Hemoglobin 11.9 g/dL (12.0-15.0); Immature Granulocyte Absolute 0.01 K/mm3 (0.00-0.031); Immature Granulocyte Percent A 0.2 % (0-0.5); Lymphocytes Absolute Auto 0.67 K/mm3 (0.9-3.2); Lymphocytes Percent Auto 15.2 % (18.3-44.2); Mean Corpuscular HGB Conc 31.9 g/dl (32-36); Mean Corpuscular Hemoglobin 26.9 pg (26-34); Mean Corpuscular Volume 84.4 fl (80-100); Mean Platelet Volume 10.9 fl (7.4-10.4); Monocytes Absolute Auto 0.3 K/mm3 (0.1-0.6); Monocytes Percent Auto 7.3 % (2.6-8.5); Neutrophils Absolute Auto 3.4 K/mm3 (1.3-6.7); Neutrophils Percent Auto 76.9 % (45.5-73.1); Platelet Count Result 214 k/mm3 (150-375); Red Blood Count 4.42 M/mm3 (4.2-5.4); Red Cell Distribution Width 17.1 % (11.5-14.5); White Blood Count 4.4 K/mm3 (4.5-10.0)
[2021-04-09 07:27] LABS: Alanine Aminotransferase 51 U/L (4-35); Albumin Level 3.8 g/dL (3.5-5.1); Alkaline Phosphatase 174 U/L (38-126); Anion Gap 8 mmol/L (8-16); Aspartate Amino Transferase 35 U/L (14-36); Bilirubin,Total 0.4 mg/dL (0.2-1.3); Blood Urea Nitrogen 7 mg/dL (7-17); Calcium 8.7 mg/dL (8.4-10.2); Carbon Dioxide 24 mmol/L (22-30); Chloride 110 mmol/L (98-107); Estimated CRCL calculation 49 ml/min; Estimated Glomerular Filt Rate > 60; Glucose 119 mg/dL (65-110); Magnesium 1.8 mg/dL (1.6-2.3); Potassium 4.2 mmol/L (3.4-5.0); Sodium 142 mmol/L (137-145)
[2021-04-09] MEDS: ENOXAPARIN 40 MG/0.4 ML SYRINGE SUB-Q (09:20)
[2021-04-09] MEDS: SILVERGEL (ELTA) 45 ML 1 APPLIC TOPICAL (09:27)
--- NOTE | 2021-04-09 10:46 | PM.IMPN ---
Progress Note: A&P Assessment and Plan (1) Small bowel obstruction: Code(s): K56.609 - Unspecified intestinal obstruction, unspecified as to partial versus complete obstruction Status: Acute Assessment and Plan: On conservative treatment. Continue to refuse NG tube Reiterated importance of NG tube placement with patient to the visit. General surgery has been consulted and following. Status post NG tube placement 04/08/2021 X-ray abdomen with persistent small-bowel obstruction (2) Bradycardia: Code(s): R00.1 - Bradycardia, unspecified Status: Acute Assessment and Plan: Persistent sinus bradycardia avoid AV darren blockers. Echocardiogram ordered for pericardial effusion. Discussed with cardiology Echo 04/08/2021 EF 65-70% grade 1 diastolic dysfunction mild MR/TR/NE mild to moderate pericardial effusion without tamponade (3) Pericardial effusion: Code(s): I31.3 - Pericardial effusion (noninflammatory) Status: Acute Assessment and Plan: No signs of tamponade. Echocardiogram ordered and reviewed (4) Hypertension: Code(s): I10 - Essential (primary) hypertension Status: Acute Assessment and Plan: Blood pressures were reviewed. And remained stable Subjective Date/time seen: 04/09/21 10:46 Interval history: HPI:This is a very pleasant 65-year-old female with history of COPD, hypertension, and multiple malignancies (kidney, thyroid, and lung cancer) who presented to the emergency department earlier today via EMS from her place of employment for evaluation of chest and abdominal pain. She was in her usual state of health when she got up early this morning and went to work. 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 She went to the bathroom and she held the urge to defecate however she was not able to move her bowels. Additionally she started to feel a pressure or gas-like sensation in her midsternal chest region. While walking out of the bathroom she felt lightheaded, weak, and somewhat diaphoretic. Coworkers took her vital signs and reportedly she was hypotensive with blood pressures in the 80s over 40s and bradycardic with a heart rate in the 40s. With IV fluid rehydration her blood pressures have since stabilized however she continues to be bradycardic. Patient reports to me that her baseline heart rate is somewhere in the 60s or 70s. EKG shows some nonspecific T wave changes and bradycardia. CT scan of the abdomen pelvis showed a small bowel obstruction with a moderate size pericardial effusion and she is being admitted in this setting. At the time my evaluation she feels much better but she continues to have mild abdominal discomfort that comes in waves. She has been passing a small amount of gas but she has not had a bowel movement since arrival. She has history of bowel obstruction in March 2019 requiring adhesiolysis. 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 She denies syncope, fever, chills, sweats, exertional chest pain, orthopnea, PND, palpitations, shortness of breath, and vomiting. 04/08/2021 reports abdominal distension no bowel movement nausea and abdominal pain. Discussed NG tube placement and she wants to think about it 04/09/2021 she received NG tube and had been feeling better since then. She still has intermittent abdominal pain no bowel movement no flatness abdominal distention has improved after NG tube placement. Review of Systems Review of Systems: All systems reviewed & are unremarkable except as noted in HPI and below (HPI) Exam Narrative: General: Well-developed female in semi-Cornelius position in bed
[2021-04-09] MEDS: HYDROmorphone HCL INJ (*CRX) 1 MG/ML SYR IV PUSH ×2 (11:10→20:17)
--- NOTE | 2021-04-09 11:25 | PM.PNCARD ---
Progress Note: A&P Assessment and Plan (1) Bradycardia: Code(s): R00.1 - Bradycardia, unspecified Status: Acute Assessment and Plan: She states that her heart rate is generally in the 60s and 70s, Now bradycardic with a rate mostly in the 50s. She tells me that prior to this hospitalization she had been taking her Synthroid hit or miss. Start levothyroxine 50 mcg daily IV for now as she is NPO. Further adjustments to be made per hospitalist service. Cardiology will continue to see this patient on an as-needed basis. Please do not hesitate to contact us with any questions our concerns regarding the care of this patient. We will arrange for outpatient follow-up in our office. (2) Pericardial effusion: Code(s): I31.3 - Pericardial effusion (noninflammatory) Status: Acute Assessment and Plan: 2D echocardiogram Doppler to evaluate. No evidence of tamponade clinically (3) Hypertension: Code(s): I10 - Essential (primary) hypertension Status: Acute Assessment and Plan: Blood pressure generally controlled at this point. Continue to avoid AV and SA darren agents. (4) Chronic obstructive pulmonary disease: Code(s): J44.9 - Chronic obstructive pulmonary disease, unspecified Status: Acute (5) Small bowel obstruction: Onset Date: ~03/2021 Code(s): K56.609 - Unspecified intestinal obstruction, unspecified as to partial versus complete obstruction Status: Acute Assessment and Plan: Per general surgery (6) Hypokalemia: Code(s): E87.6 - Hypokalemia Status: Resolved Assessment and Plan: this has been corrected. Today her potassium is 4.2. Additional Plan Subjective Date/time seen: 04/09/21 11:25 Interval history: Cardiology follow-up for bradycardia Date of service 04/09/2021: Feeling better today, still with lots of NG output. She denies any cardiovascular complaints of any kind. Review of Systems Review of Systems: All systems reviewed & are unremarkable except as noted in HPI and below Constitutional: Constitutional: Denies excessive sweating, Denies headache(s) and Denies weakness Eyes: Eyes: Denies blurry vision ENT: Reports Normal hearing present, Denies headache(s) and Denies neck pain Cardiovascular: Cardiovascular: Reports chest pain and Reports dyspnea Respiratory: Respiratory: Reports dyspnea Gastrointestinal: Gastrointestinal: Reports abdominal pain Genitourinary: Genitourinary: Denies hematuria Musculoskeletal: Musculoskeletal: Denies neck pain Integumentary/Breasts: Skin/Breast: Denies dry skin Neurologic: Reports Normal hearing present, Denies confusion, Denies headache(s) and Denies weakness Psychiatric: Psychiatric: Denies anxiety and Denies confusion Endocrine: Endocrine: Denies excessive sweating Hematologic/Lymphatic: Hematologic/Lymphatic: Denies easy bleeding Allergic/Immunologic: Allergic/Immunologic: Denies GI upset with certain foods Exam Narrative: Alert and oriented. Appears stated age Const: General: no acute distress and uncomfortable; No confusion Orientation/consciousness: No confusion HENMT: General nose exam: no epistaxis Eyes: Sclera: sclerae normal Neck: Neck: supple and no JVD Chest: Other: No reproducible chest wall pain to palpation Resp: Auscultation: diminished lung sounds Cardio: Rate: bradycardic Rhythm: regular rhythm GI: Other: Hypoactive bowel sounds Skin: General skin exam: normal color Neuro: General: No confusion Cranial nerves: Yes Normal hearing present Cognition (Neuro): normal cognition Speech: normal speech Extrem: General: edema (Trivial bilateral lower extremity edema) Psych: Mental Status: mental status grossly normal Objective Data Vital Signs Vital Signs: Vital Signs - 24 hr 04/08/21 12:00 04/08/21 14:00 04/08/21 16:00 Temperature 36.0 C L 36.1 C L Pulse Rate 48 L 50 L 50 L Res
[2021-04-09] MEDS: LEVOTHYROXINE SODIUM INJ 100 MCG/5 ML VIAL 50 MCG IV PUSH (13:54)
--- NOTE | 2021-04-09 15:01 | PM.PNGS ---
Progress Note: A&P Assessment and Plan (1) Small bowel obstruction: Code(s): K56.609 - Unspecified intestinal obstruction, unspecified as to partial versus complete obstruction Status: Acute Assessment and Plan: Feeling better and having good NG tube output. Plain films have not really changed much as yet. Continue NG suction, NPO except ice chips, serial exam and labs. Hopefully will resolve without surgical intervention. (2) Hypothyroidism associated with surgical procedure: Code(s): E89.0 - Postprocedural hypothyroidism Status: Acute Assessment and Plan: Patient had thyroidectomy for cancer and has not been taking her thyroid supplement. Receiving IV thyroxine now. (3) Bradycardia: Code(s): R00.1 - Bradycardia, unspecified Status: Acute Assessment and Plan: Cardiology notes appreciated. No low blood pressure. Echo results noted. Pericardial effusion suggested to be mild or minimal. With stable in the low 50s with the occasional heart rate in the 40s. Subjective Subjective Date/Time Seen: 04/09/21 15:01 Patient reports: feels better, pain is less (No pain medication all night, did take Dilaudid at 11 a.m.), flatus, no bowel movement and afebrile Interval history: Feels much better than yesterday. NG tube is tolerable. Passing some flatus but no BM. Pain has become much less frequent. Review of Systems Review of Systems: All systems reviewed & are unremarkable except as noted in HPI and below Constitutional: Constitutional: Denies body ache(s), Denies chills, Denies fever(s), Denies headache(s) and Denies night sweats Gastrointestinal: Gastrointestinal: Reports as per HPI, Denies GI cramping, Denies heartburn, Denies diarrhea and Denies nausea Exam Const: General: comfortable and no acute distress; No confusion Orientation/consciousness: patient oriented x3 and No confusion GI: Inspection: distended, scar (Open area healing well) and no visible herniation GI Palp: Yes Soft to palpation, Yes Tenderness to palpation present (GI) (Minimal tenderness, no peritoneal signs), No Guarding due to palpation present (GI), No Hernia present, No Palpable mass present, No Ascites present and No Rebound tenderness present Auscultation: absent bowel sounds Neuro: General: patient oriented x3, no focal motor deficits and No confusion Extrem: General: no calf tenderness and no edema Psych: Affect: normal affect Insight: Good insight present (Psych) Judgement: Good judgement present (Psych) Objective Data Vital Signs Vital Signs: Vital Signs - 24 hr 04/08/21 16:00 04/08/21 20:00 04/09/21 00:00 Temperature 36.1 C L 35.7 C L Pulse Rate 50 L 46 L 53 L Respiratory Rate 16 20 Blood Pressure 125/79 131/76 Pulse Oximetry 94 96 04/09/21 01:36 04/09/21 04:19 04/09/21 06:00 Temperature 35.9 C L Pulse Rate 52 L 52 L Respiratory Rate 20 Blood Pressure 127/80 133/71 Pulse Oximetry 95 04/09/21 08:00 04/09/21 08:18 04/09/21 12:00 Temperature Pulse Rate 53 L 54 L Respiratory Rate Blood Pressure Pulse Oximetry 95 04/09/21 14:21 Temperature 36.2 C L Pulse Rate 61 Respiratory Rate 18 Blood Pressure 123/63 Pulse Oximetry 96 Intake/Output Intake/Output: Intake & Output 04/06/21 04/07/21 04/08/21 04/09/21 23:59 23:59 23:59 23:59 Intake Total 1000 1120 2000 Output Total 1150 600 Balance 1000 -30 1400 Meds/Results Medications: Active Medications Generic Name Dose Route Start Last Admin Trade Name Freq PRN Reason Stop Dose Admin Enoxaparin Sodium 40 mg 04/08/21 09:00 04/09/21 09:20 Enoxaparin 40 Mg/0.4 Ml Syringe SUB-Q 40 mg DAILY JUAN M Administration Fentanyl Citrate 12.5 mcg 04/09/21 15:00 Fentanyl Citrate Inj (*Crx) 100 Mcg/2 Ml Vial IV PUSH Q2H PRN Pain Rated 1-3 Hydromorphone HCl 1 mg 04/08/21 14:02 04/09/21 11:10 Hydromorphone Hcl Inj (*Crx) 1 Mg/Ml Syr IV PUSH 1 mg Q2H PRN
[2021-04-09] MEDS: KCL 20 MEQ/D5/0.9% SOD CHL 1,000 ML 100 ML IV CONT (17:47)
[2021-04-10] VITALS (9 sets, daily range): BP systolic 129–146; BP diastolic 73–80; PULSE 53–60; RESP 16–18; TEMP 35.7–36.1; O2SAT 95–99
[2021-04-10] MEDS: KCL 20 MEQ/D5/0.9% SOD CHL 1,000 ML 100 ML IV CONT ×2 (04:10→14:13)
[2021-04-10] MEDS: HYDROmorphone HCL INJ (*CRX) 1 MG/ML SYR IV PUSH ×3 (04:12→20:14)
[2021-04-10 06:00] LABS: Hematocrit 34.9 % (37.0-47.0); Hemoglobin 11.1 g/dL (12.0-15.0); Mean Corpuscular HGB Conc 31.8 g/dl (32-36); Mean Corpuscular Hemoglobin 27.5 pg (26-34); Mean Corpuscular Volume 86.4 fl (80-100); Platelet Count Result 204 k/mm3 (150-375); Red Blood Count 4.04 M/mm3 (4.2-5.4); Red Cell Distribution Width 17.8 % (11.5-14.5); White Blood Count 3.5 K/mm3 (4.5-10.0)
[2021-04-10 06:06] LABS: Anion Gap 5 mmol/L (8-16); Blood Urea Nitrogen 5 mg/dL (7-17); Calcium 8.5 mg/dL (8.4-10.2); Carbon Dioxide 24 mmol/L (22-30); Chloride 113 mmol/L (98-107); Estimated CRCL calculation 45 ml/min; Estimated Glomerular Filt Rate > 60; Glucose 114 mg/dL (65-110); Potassium 3.8 mmol/L (3.4-5.0); Sodium 142 mmol/L (137-145)
[2021-04-10] MEDS: LEVOTHYROXINE SODIUM INJ 100 MCG/5 ML VIAL 50 MCG IV PUSH (06:11)
[2021-04-10] MEDS: ENOXAPARIN 40 MG/0.4 ML SYRINGE SUB-Q (09:07)
[2021-04-10] MEDS: SILVERGEL (ELTA) 45 ML 1 APPLIC TOPICAL (09:07)
--- NOTE | 2021-04-10 15:00 | PM.IMPN ---
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 Schwartz -if no improvement with conservative management over the weekend, patient may need surgery -pain control: P.r.n. fentanyl, Dilaudid -while NPO IV fluids potassium 20 mEq in D5 NS 100 mL per hour # sinus bradycardia -asymptomatic -echocardiogram 04/08/2021: LVEF 65-70%, grade 1 diastolic dysfunction, [id number] pericardial effusion # hypertension -continue monitoring blood pressures -at home uses amlodipine 10 mg, held as she is NPO # hypothyroidism: Continue IV levothyroxine Diet: NPO DVT prophylaxis: Lovenox Code status: Full code Disposition: Pending clinical course, still has NG tube in place and no fluctuance Subjective Date/time seen: 04/10/21 15:00 Patient seen examined. She has very hypoactive bowel sounds. Patient has a complicated history with Whipple procedure for pancreatic cyst. Now she has high risk for adhesions difficult operative solution for small-bowel obstruction. Patient being followed by Dr. Schwartz. If no resolution over the weekend patient may need surgical intervention. Patient of was encouraged to move around, NG tube can be clamped. Patient denies fever, chills, nausea vomiting, diarrhea. She denies flatulence. Review of Systems Review of Systems: All systems reviewed & are unremarkable except as noted in HPI and below Exam Narrative: - GENERAL: Pleasant woman in no distress comfortably in bed. - EYES: EOMI. Anicteric. - HENT: Moist mucous membranes. NG tube in place which is clamped - LUNGS: Clear to auscultation bilaterally, no wheezing, rhonchi, or rales. - CARDIOVASCULAR: Regular rate and rhythm. No murmur. No JVD. - ABDOMEN: Soft, non-tender and non-distended. No palpable masses. Large midline wound dressing in place clean dry intact. Hypoactive bowel sounds throughout. - EXTREMITIES: No edema. Peripheral pulses 2+. Non-tender. - NEUROLOGIC: No focal neurological deficits. CN II-XII grossly intact. - PSYCHIATRIC: Awake, Alert and oriented x 3. Tearful about her medical condition. - SKIN: No rashes or lesions. Warm. - LYMPH: No cervical lymphadenopathy. Objective Data Vital Signs Vital Signs: Vital Signs - 24 hr 04/09/21 16:00 04/09/21 20:05 04/09/21 20:24 Temperature 36.9 C Pulse Rate 57 L 58 L Respiratory Rate 16 16 Blood Pressure 126/73 Pulse Oximetry 94 94 04/10/21 00:05 04/10/21 04:04 04/10/21 04:07 Temperature 36.1 C L Pulse Rate 59 L 58 L 55 L Respiratory Rate 18 Blood Pressure 129/76 Pulse Oximetry 95 04/10/21 08:00 04/10/21 12:00 Temperature Pulse Rate 55 L 55 L Respiratory Rate Blood Pressure Pulse Oximetry Intake/Output Intake/Output: Intake & Output 04/07/21 04/08/21 04/09/21 04/10/21 23:59 23:59 23:59 23:59 Intake Total 1000 1120 2000 2050 Output Total 1150 1750 600 Balance 1000 -30 250 1450 Meds/Results Medications: Active Medications Generic Name Dose Route Start Last Admin Trade Name Freq PRN Reason Stop Dose Admin Enoxaparin Sodium 40 mg 04/08/21 09:00 04/10/21 09:07 Enoxaparin 40 Mg/0.4 Ml Syringe SUB-
--- NOTE | 2021-04-10 17:13 | PM.PNGS ---
Progress Note: A&P Assessment and Plan (1) Small bowel obstruction: Code(s): K56.609 - Unspecified intestinal obstruction, unspecified as to partial versus complete obstruction Status: Acute Assessment and Plan: Feeling better and having good NG tube output. States she wants to get up and walk. Plain films have not really changed much as yet. To my review today's films shows possible improvement compared to 04/09 in that the two loops of SB seen seem to have less air distention. Continue NG suction, NPO except ice chips, serial exam and labs. Hopefully will resolve without surgical intervention. (2) Hypothyroidism associated with surgical procedure: Code(s): E89.0 - Postprocedural hypothyroidism Status: Acute Assessment and Plan: Patient had thyroidectomy for cancer and has not been taking her thyroid supplement. Receiving IV thyroxine now. (3) Bradycardia: Code(s): R00.1 - Bradycardia, unspecified Status: Acute Assessment and Plan: Cardiology notes appreciated. No low blood pressure. Echo results noted. Pericardial effusion suggested to be mild. Heart rate stable in the 50s. Subjective Subjective Date/Time Seen: 04/10/21 17:13 Patient reports: no new complaints, pain is less, no flatus and no bowel movement Interval history: Patient does feel little bit better since having the NG in. Has not noticed any bowel movement or flatus. Does want to try to get up and walk and I encouraged this. Nurse will also let her shower and change the dressing dressing on the small open wound midline of the abdomen after she gets out of the shower. Review of Systems Review of Systems: All systems reviewed & are unremarkable except as noted in HPI and below Constitutional: Constitutional: Reports as per HPI, Denies body ache(s), Denies chills, Denies fatigue, Denies fever(s), Denies headache(s) and Denies night sweats Gastrointestinal: Gastrointestinal: Reports as per HPI, Reports no additional gastrointestinal complaints, Reports abdominal pain, Denies GI cramping, Denies heartburn, Denies diarrhea and Denies nausea Exam Resp: Effort & Inspection: no respiratory distress Auscultation: clear to auscultation bilaterally Cardio: Rate: bradycardic Rhythm: regular rhythm Heart sounds: S1 normal heart sound present and S2 normal heart sound present GI: Inspection: distended, scar (Open area healing well), no visible herniation and other (mildly distended) Auscultation: absent bowel sounds Rectal Exam: deferred Other: Large wide-mouthed scar in the midline with a small < 0.5 cm open wound at the inferior aspect of the scar with scant smith/yellow drainage, no surrounding erythema or warmth. Probed with a cotton tip swab and does not seem to tunnel at all. Extrem: General: normal to inspection, no calf tenderness, no edema and other (minimal trace edema to lower legs) Objective Data Vital Signs Vital Signs: Vital Signs - 24 hr 04/09/21 20:05 04/09/21 20:24 04/10/21 00:05 Temperature 36.9 C Pulse Rate 58 L 59 L Respiratory Rate 16 16 Blood Pressure 126/73 Pulse Oximetry 94 94 04/10/21 04:04 04/10/21 04:07 04/10/21 08:00 Temperature 36.1 C L Pulse Rate 58 L 55 L 55 L Respiratory Rate 18 Blood Pressure 129/76 Pulse Oximetry 95 04/10/21 12:00 04/10/21 15:05 04/10/21 16:00 Temperature 35.7 C L Pulse Rate 55 L 53 L 58 L Respiratory Rate 16 Blood Pressure 146/73 H Pulse Oximetry 99 Intake/Output Intake/Output: Intake & Output 04/07/21 04/08/21 04/09/21 04/10/21 23:59 23:59 23:59 23:59 Intake Total 1000 1120 2000 2050 Output Total 1150 1750 600 Balance 1000 -30 250 1450 Meds/Results Medications: Active Medications Generic Name Dose Route Start Last Admin Trade Name Mauriq PRN Reason Stop Dose Admin Enoxaparin Sodium 40 mg 04/08/21 09:00 04/10/21 09:07 Enoxaparin 40 Mg/0.4 Ml Syringe SUB-Q 40 mg DAILY JUAN M Admin
[2021-04-10] MEDS: ONDANSETRON INJ 4 MG/2 ML VIAL IV PUSH (20:14)
[2021-04-11] VITALS (10 sets, daily range): BP systolic 131–143; BP diastolic 72–81; PULSE 48–61; RESP 14–16; TEMP 35.7–36.6; O2SAT 94–96
[2021-04-11] MEDS: KCL 20 MEQ/D5/0.9% SOD CHL 1,000 ML 100 ML IV CONT ×2 (01:08→12:40)
[2021-04-11] MEDS: HYDROmorphone HCL INJ (*CRX) 1 MG/ML SYR IV PUSH ×6 (05:18→23:21)
[2021-04-11] MEDS: ONDANSETRON INJ 4 MG/2 ML VIAL IV PUSH ×3 (05:18→20:06)
[2021-04-11] MEDS: LEVOTHYROXINE SODIUM INJ 100 MCG/5 ML VIAL 50 MCG IV PUSH (06:20)
[2021-04-11 07:08] LABS: Hematocrit 34.1 % (37.0-47.0); Hemoglobin 10.8 g/dL (12.0-15.0); Mean Corpuscular HGB Conc 31.7 g/dl (32-36); Mean Corpuscular Hemoglobin 27.3 pg (26-34); Mean Corpuscular Volume 86.3 fl (80-100); Mean Platelet Volume 10.8 fl (7.4-10.4); Platelet Count Result 181 k/mm3 (150-375); Red Blood Count 3.95 M/mm3 (4.2-5.4); Red Cell Distribution Width 17.4 % (11.5-14.5)
[2021-04-11 07:32] LABS: Anion Gap 9 mmol/L (8-16); Blood Urea Nitrogen 3 mg/dL (7-17); Calcium 8.5 mg/dL (8.4-10.2); Carbon Dioxide 23 mmol/L (22-30); Chloride 109 mmol/L (98-107); Estimated CRCL calculation 49 ml/min; Estimated Glomerular Filt Rate > 60; Glucose 117 mg/dL (65-110); Potassium 3.5 mmol/L (3.4-5.0); Sodium 141 mmol/L (137-145)
[2021-04-11 07:40] LABS: Prealbumin 12.6 mg/dL (17.6-36.0)
[2021-04-11] MEDS: SILVERGEL (ELTA) 45 ML 1 APPLIC TOPICAL (09:26)
[2021-04-11] MEDS: BISACODYL 10 MG SUPPOSITORY RECTAL (09:26)
[2021-04-11] MEDS: ENOXAPARIN 40 MG/0.4 ML SYRINGE SUB-Q (09:27)
--- NOTE | 2021-04-11 13:36 | PM.PNGS ---
Progress Note: A&P Assessment and Plan (1) Small bowel obstruction: Code(s): K56.609 - Unspecified intestinal obstruction, unspecified as to partial versus complete obstruction Status: Acute Assessment and Plan: Feeling better right now than at 5:00 a.m. this morning and having somewhat less NG tube output in the last 24 hours compared to the previous 24. States she wants to get up and walk. Plain films have not really changed much as yet. To my review today's films shows possible improvement compared to 04/10 in that the two loops of SB seen seem to have less air distention. however, I reviewed these with Dr. Butler in Radiology. Certainly there could be some fluid-filled loops not well seen and there was no gas getting through to the colon at this time. Therefore, her next step should be in the next several days to do a small-bowel follow-through and then consider surgical intervention if there is a definite sign of significant partial or complete obstruction. In view of this I will talk with the hospitalist and see if the patient can be transferred to her pancreatic surgeon Dr. Bobo Westbrook at [facility]. Since she had a complex surgery in November of this year and was in the hospital for 1 month I think it would be wiser for any exploration for small bowel obstruction to take place where they have the previous records/OP nootes and if possible the surgeon who performed that surgery do this one if indicated. If [place] is full or their service not available will consider small-bowel follow-through on Tuesday and plan for surgical intervention here barring signs of sepsis or perforation in the interim. Continue NPO except ice chips, serial exam and labs. This afternoon will try giving the patient some milk of magnesia down the NG tube and clamping for 2 hours to see if this will help things get started. Hopefully this will resolve without surgical intervention. (2) Hypothyroidism associated with surgical procedure: Code(s): E89.0 - Postprocedural hypothyroidism Status: Acute Assessment and Plan: Patient had thyroidectomy for cancer and has not been taking her thyroid supplement. Receiving IV thyroxine now. (3) Bradycardia: Code(s): R00.1 - Bradycardia, unspecified Status: Acute Assessment and Plan: Cardiology notes appreciated. No low blood pressure. Echo results noted. Pericardial effusion suggested to be mild. Heart rate stable in the 50s. (4) Hypoalbuminemia due to protein-calorie malnutrition: Code(s): E88.09 - Other disorders of plasma-protein metabolism, not elsewhere classified; E46 - Unspecified protein-calorie malnutrition Status: Acute Assessment and Plan: In view the patient's continuing need for NPO status will start peripheral nutrition to preserve protein calorie nutrition. Additional Plan I have discussed the plan of care with Dr. Bran Subjective Subjective Date/Time Seen: 04/11/21 13:36 Patient reports: still having pain and no bowel movement Interval history: Patient did get up and walk yesterday. Has not been passing gas. Did try a suppository this morning without much results. NG output has slowed down overnight. I informed her that her x-rays were not too much different this morning compared to yesterday. She is still having some lower abdominal pain which peaked about 5:00 a.m. but now is not too bad. addendum at 2:00 p.m. ---- talked to patient's nurse to explain start of Clinimix as noted below. Patient's nurse stated the patient got up to the commode and had some liquid and solid stool. She is not sure whether the patient passed gas because she came in just after the patient had a bowel movement. When getting up and moving the patient's NG tube came out. ( Will try giving the patient oral medical milk of magnesia and check with the nurse in for 5 hours to see how things are going before deciding whether not to put the NG back
[2021-04-11 14:37] LABS: Basophils Percent Auto 0.5 % (0.2-1.2); Eosinophils Absolute Auto 0.1 K/mm3 (0-0.3); Eosinophils Percent Auto 1.1 % (0-4.4); Hematocrit 39.6 % (37.0-47.0); Hemoglobin 12.4 g/dL (12.0-15.0); Immature Granulocyte Absolute 0.01 K/mm3 (0.00-0.031); Immature Granulocyte Percent A 0.2 % (0-0.5); Lymphocytes Absolute Auto 1.25 K/mm3 (0.9-3.2); Lymphocytes Percent Auto 28.3 % (18.3-44.2); Mean Corpuscular HGB Conc 31.3 g/dl (32-36); Mean Corpuscular Hemoglobin 27.3 pg (26-34); Mean Platelet Volume 10.4 fl (7.4-10.4); Monocytes Absolute Auto 0.5 K/mm3 (0.1-0.6); Monocytes Percent Auto 10.9 % (2.6-8.5); Neutrophils Absolute Auto 2.6 K/mm3 (1.3-6.7); Platelet Count Result 215 k/mm3 (150-375); Red Blood Count 4.55 M/mm3 (4.2-5.4); Red Cell Distribution Width 17.6 % (11.5-14.5); White Blood Count 4.4 K/mm3 (4.5-10.0)
[2021-04-11 14:47] LABS: Alanine Aminotransferase 44 U/L (4-35); Albumin Level 4.1 g/dL (3.5-5.1); Alkaline Phosphatase 167 U/L (38-126); Anion Gap 9 mmol/L (8-16); Aspartate Amino Transferase 36 U/L (14-36); Bilirubin,Total 0.5 mg/dL (0.2-1.3); Blood Urea Nitrogen 3 mg/dL (7-17); Calcium 9.2 mg/dL (8.4-10.2); Carbon Dioxide 26 mmol/L (22-30); Chloride 106 mmol/L (98-107); Estimated CRCL calculation 49 ml/min; Estimated Glomerular Filt Rate > 60; Glucose 122 mg/dL (65-110); Magnesium 1.6 mg/dL (1.6-2.3); Partial Thromboplastin Time 43.5 SECONDS (22.3-36.8); Potassium 3.8 mmol/L (3.4-5.0); Sodium 141 mmol/L (137-145)
[2021-04-11 14:55] LABS: Transferrin 229 mg/dL (206-381)
[2021-04-11] MEDS: MAGNESIUM HYDROXIDE SUSP 30 ML UDC PO (15:55)
[2021-04-11] MEDS: AMINO ACIDS 4.25%/D5W/LYTES/CA 2,000 ML 80 ML IV CONT (16:40)
[2021-04-11] MEDS: FAT EMULSIONS IV 20% 250 ML 20.83 ML IVPB (16:43)
--- NOTE | 2021-04-11 16:55 | PM.IMPN ---
Progress Note: A&P Assessment and Plan (1) Hypothyroidism associated with surgical procedure: Code(s): E89.0 - Postprocedural hypothyroidism Status: Acute Assessment and Plan: on IV levothyroxine. History of thyroidectomy in the past (2) Small bowel obstruction: Code(s): K56.609 - Unspecified intestinal obstruction, unspecified as to partial versus complete obstruction Status: Acute Assessment and Plan: On conservative treatment. Continue to refuse NG tube Reiterated importance of NG tube placement with patient to the visit. General surgery has been consulted and following. Status post NG tube placement 04/08/2021 X-ray abdomen with persistent small-bowel obstruction Further care per General surgery (3) Bradycardia: Code(s): R00.1 - Bradycardia, unspecified Status: Acute Assessment and Plan: Persistent sinus bradycardia avoid AV darren blockers. Echocardiogram ordered for pericardial effusion. Discussed with cardiology Echo 04/08/2021 EF 65-70% grade 1 diastolic dysfunction mild MR/TR/IN mild to moderate pericardial effusion without tamponade could be due to hypothyroidism (4) Pericardial effusion: Code(s): I31.3 - Pericardial effusion (noninflammatory) Status: Acute Assessment and Plan: No signs of tamponade. Echocardiogram ordered and reviewed Additional Plan DVT prophylaxis Lovenox History of Whipple for pancreatic cyst with concern for malignancy with complicated postoperative wound infection with wound VAC mid abdomen Subjective Date/time seen: 04/11/21 16:55 Interval history: HPI:This is a very pleasant 65-year-old female with history of COPD, hypertension, and multiple malignancies (kidney, thyroid, and lung cancer) who presented to the emergency department earlier today via EMS from her place of employment for evaluation of chest and abdominal pain. She was in her usual state of health when she got up early this morning and went to work. 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 She went to the bathroom and she held the urge to defecate however she was not able to move her bowels. Additionally she started to feel a pressure or gas-like sensation in her midsternal chest region. While walking out of the bathroom she felt lightheaded, weak, and somewhat diaphoretic. Coworkers took her vital signs and reportedly she was hypotensive with blood pressures in the 80s over 40s and bradycardic with a heart rate in the 40s. With IV fluid rehydration her blood pressures have since stabilized however she continues to be bradycardic. Patient reports to me that her baseline heart rate is somewhere in the 60s or 70s. EKG shows some nonspecific T wave changes and bradycardia. CT scan of the abdomen pelvis showed a small bowel obstruction with a moderate size pericardial effusion and she is being admitted in this setting. At the time my evaluation she feels much better but she continues to have mild abdominal discomfort that comes in waves. She has been passing a small amount of gas but she has not had a bowel movement since arrival. She has history of bowel obstruction in March 2019 requiring adhesiolysis. More recently she had a Whipple procedure due to findings of a pancreatic cystic lesion with concerns for possible malignancy (pathology was benign) done in November 2020 at [place] which was complicated by a postoperative wound infection leaving a large open abdominal wound treated with wound VAC. She denies syncope, fever, chills, sweats, exertional chest pain, orthopnea, PND, palpitations, shortness of breath, and vomiting. 04/08/2021 reports abdominal distension no bowel movement nausea and abdominal pain. Discussed NG tube placement and she wants to think about it 04/09/2021 she received NG tube and had been feeling better since then. She still has intermittent abdominal pain no
[2021-04-11 18:54] LABS: Glucose Point of Care 132 mg/dl (65-105)
[2021-04-11 23:23] LABS: Glucose Point of Care 126 mg/dl (65-105)
[2021-04-12] VITALS (9 sets, daily range): BP systolic 120–135; BP diastolic 65–74; PULSE 47–59; RESP 14–18; TEMP 36.2–36.9; O2SAT 95–98
[2021-04-12] MEDS: HYDROmorphone HCL INJ (*CRX) 1 MG/ML SYR IV PUSH ×4 (03:16→15:45)
[2021-04-12] MEDS: LEVOTHYROXINE SODIUM INJ 100 MCG/5 ML VIAL 50 MCG IV PUSH (06:05)
[2021-04-12] MEDS: ONDANSETRON INJ 4 MG/2 ML VIAL IV PUSH ×3 (06:10→22:25)
[2021-04-12 06:11] LABS: Glucose Point of Care 114 mg/dl (65-105)
[2021-04-12 06:25] LABS: Hematocrit 35.4 % (37.0-47.0); Hemoglobin 11.6 g/dL (12.0-15.0); Mean Corpuscular HGB Conc 32.8 g/dl (32-36); Mean Corpuscular Hemoglobin 27.4 pg (26-34); Mean Corpuscular Volume 83.7 fl (80-100); Mean Platelet Volume 10.1 fl (7.4-10.4); Platelet Count Result 183 k/mm3 (150-375); Red Blood Count 4.23 M/mm3 (4.2-5.4); Red Cell Distribution Width 16.8 % (11.5-14.5); White Blood Count 3.8 K/mm3 (4.5-10.0)
[2021-04-12 06:36] LABS: Lactic Acid Reflex 1.1 mmol/L (0.7-2.1)
[2021-04-12 06:39] LABS: Anion Gap 6 mmol/L (8-16); Blood Urea Nitrogen 11 mg/dL (7-17); Calcium 8.8 mg/dL (8.4-10.2); Carbon Dioxide 28 mmol/L (22-30); Chloride 103 mmol/L (98-107); Estimated CRCL calculation 55 ml/min; Estimated Glomerular Filt Rate > 60; Glucose 123 mg/dL (65-110); Lipase 34 U/L (23-300); Phosphorus 4.7 mg/dL (2.5-4.5); Potassium 3.7 mmol/L (3.4-5.0); Sodium 137 mmol/L (137-145)
[2021-04-12] MEDS: ENOXAPARIN 40 MG/0.4 ML SYRINGE SUB-Q (08:19)
[2021-04-12] MEDS: SILVERGEL (ELTA) 45 ML 1 APPLIC TOPICAL (08:20)
--- NOTE | 2021-04-12 09:16 | PM.PNGS ---
Progress Note: A&P Assessment and Plan (1) Small bowel obstruction: Onset Date: ~03/2021 Code(s): K56.609 - Unspecified intestinal obstruction, unspecified as to partial versus complete obstruction Status: Acute Assessment and Plan: After a suppository yesterday and then 1 dose of milk a magnesia the patient's NG came out inadvertently. We left it out and let her continue ice chips. She has had no vomiting overnight and actually has had 2 more bowel movements. She still has some nausea but a little bit less pain. We will go ahead and start her on clear liquids and await results of today's abdominal films. (2) Hypoalbuminemia due to protein-calorie malnutrition: Onset Date: ~03/2021 Code(s): E88.09 - Other disorders of plasma-protein metabolism, not elsewhere classified; E46 - Unspecified protein-calorie malnutrition Status: Acute Assessment and Plan: Patient started on peripheral PPN yesterday p.m. in view of significant length of NPO status over the last week. (pre albumin checked 04/10 was moderately depleted at 12.6). Subjective Subjective Date/Time Seen: 04/12/21 09:16 Patient reports: bowel movement (Patient had 2 spontaneous bowel movements overnight) Interval history: Did not need NG replaced last night it does have some of some mild nausea and last took something for nausea and midnight. Has been having some loose and formed stools (x2 overnight). Review of Systems Review of Systems: All systems reviewed & are unremarkable except as noted in HPI and below Constitutional: Constitutional: Reports as per HPI, Denies body ache(s), Denies chills, Denies fatigue, Denies fever(s), Denies headache(s) and Denies night sweats Eyes: Eyes: Reports no additional eye complaints and Denies change in vision ENT: Reports system reviewed and no additional complaints, except as documented, Denies dizziness and Denies headache(s) Cardiovascular: Cardiovascular: Reports no additional cardiovascular complaints, Denies chest pain, Denies leg edema and Denies dyspnea Respiratory: Respiratory: Reports no additional respiratory complaints, Denies cough and Denies dyspnea Gastrointestinal: Gastrointestinal: Reports as per HPI, Reports no additional gastrointestinal complaints, Reports abdominal pain, Denies GI cramping, Denies heartburn, Denies diarrhea and Denies nausea Genitourinary: Genitourinary: Denies hematuria and Denies dysuria Exam Const: General: cooperative, no acute distress, awake and uncomfortable (With mild upper abdominal discomfort.); No confusion Nutritional Appearance: average body habitus Orientation/consciousness: patient oriented x3 and No confusion Resp: Effort & Inspection: no respiratory distress Auscultation: clear to auscultation bilaterally Cardio: Rate: bradycardic Rhythm: regular rhythm Heart sounds: S1 normal heart sound present and S2 normal heart sound present GI: Inspection: distended, scar (Open area healing well), no visible herniation and other (mildly distended) Auscultation: Hypoactive bowel sounds present Rectal Exam: deferred Other: Large wide-mouthed scar in the midline with a small < 0.5 cm open wound at the inferior aspect of the scar with scant smith/yellow drainage, no surrounding erythema or warmth. This area inspected again and there appears to be less drainage today. Extrem: General: normal to inspection, no calf tenderness, no edema and other (minimal trace edema to lower legs) Psych: Mental Status: mental status grossly normal Affect: normal affect Insight: Good insight present (Psych) Judgement: Good judgement present (Psych) Objective Data Vital Signs Vital Signs: Vital Signs - 24 hr 04/11/21 12:00 04/11/21 16:00 04/11/21 17:58 Temperature 35.7 C L Pulse Rate 53 L 55 L 50 L Respiratory Rate 14 Blood Pressure 136/72 Pulse Oximetry 95 04/11/21 19:23 04/11/21 20:00 04/12/21 00:00 Temperature 36.0 C L Pulse Rate 55
[2021-04-12 12:05] LABS: Glucose Point of Care 109 mg/dl (65-105)
[2021-04-12] MEDS: MAGNESIUM HYDROXIDE SUSP 30 ML UDC PO (12:13)
[2021-04-12 14:17] LABS: Triglycerides 72 mg/dL (<150)
[2021-04-12] MEDS: AMINO ACIDS 4.25%/D5W/LYTES/CA 2,000 ML 80 ML IV CONT (14:40)
[2021-04-12] MEDS: FAT EMULSIONS IV 20% 250 ML 20.83 ML IVPB (14:40)
--- NOTE | 2021-04-12 17:00 | PM.IMPN ---
Progress Note: A&P Assessment and Plan (1) Hypothyroidism associated with surgical procedure: Code(s): E89.0 - Postprocedural hypothyroidism Status: Acute Assessment and Plan: on IV levothyroxine. History of thyroidectomy in the past (2) Small bowel obstruction: Onset Date: ~03/2021 Code(s): K56.609 - Unspecified intestinal obstruction, unspecified as to partial versus complete obstruction Status: Acute Assessment and Plan: On conservative treatment. Continue to refuse NG tube Reiterated importance of NG tube placement with patient to the visit. General surgery has been consulted and following. Status post NG tube placement 04/08/2021 X-ray abdomen with persistent small-bowel obstruction, today's x-ray with mild improvement NG has been displaced Further care per General surgery (3) Bradycardia: Code(s): R00.1 - Bradycardia, unspecified Status: Acute Assessment and Plan: Persistent sinus bradycardia avoid AV darren blockers. Echocardiogram ordered for pericardial effusion. Discussed with cardiology Echo 04/08/2021 EF 65-70% grade 1 diastolic dysfunction mild MR/TR/[place] mild to moderate pericardial effusion without tamponade could be due to hypothyroidism (4) Pericardial effusion: Code(s): I31.3 - Pericardial effusion (noninflammatory) Status: Acute Assessment and Plan: No signs of tamponade. 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 She was in her usual state of health when she got up early this morning and went to work. 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 She went to the bathroom and she held the urge to defecate however she was not able to move her bowels. Additionally she started to feel a pressure or gas-like sensation in her midsternal chest region. While walking out of the bathroom she felt lightheaded, weak, and somewhat diaphoretic. Coworkers took her vital signs and reportedly she was hypotensive with blood pressures in the 80s over 40s and bradycardic with a heart rate in the 40s. With IV fluid rehydration her blood pressures have since stabilized however she continues to be bradycardic. Patient reports to me that her baseline heart rate is somewhere in the 60s or 70s. EKG shows some nonspecific T wave changes and bradycardia. CT scan of the abdomen pelvis showed a small bowel obstruction with a moderate size pericardial effusion and she is being admitted in this setting. At the time my evaluation she feels much better but she continues to have mild abdominal discomfort that comes in waves. She has been passing a small amount of gas but she has not had a bowel movement since arrival. She has history of bowel obstruction in March 2019 requiring adhesiolysis. More recently she had a Whipple procedure due to findings of a pancreatic cystic lesion with concerns for possible malignancy (pathology was benign) done in November 2020 at [place] which was complicated by a postoperative wound infection leaving a large open abdominal wound treated with wound VAC. She denies syncope, fever, chills, sweats, exertional chest pain, orthopnea, PND, palpitations, shortness of breath, and vomiting. 04/08/2021 reports abdominal distension no bowel movement nausea and abdominal pain. Discussed NG tube placement and she wants to think about it 04/09/2021 she received NG tub
[2021-04-12 19:06] LABS: Glucose Point of Care 123 mg/dl (65-105)
[2021-04-12] MEDS: HYDROmorphone HCL INJ (*CRX) 1 MG/ML SYR 0.5 MG IV PUSH (22:25)
[2021-04-12 23:46] LABS: Glucose Point of Care 110 mg/dl (65-105)
[2021-04-13] VITALS (9 sets, daily range): BP systolic 143–148; BP diastolic 76–83; PULSE 51–70; RESP 14–18; TEMP 36.1–37.4; O2SAT 94–96; BMI 23.1
[2021-04-13] MEDS: HYDROmorphone HCL INJ (*CRX) 1 MG/ML SYR 0.5 MG IV PUSH (02:04)
[2021-04-13] MEDS: ONDANSETRON INJ 4 MG/2 ML VIAL IV PUSH ×3 (02:04→16:39)
[2021-04-13 05:52] LABS: Basophils Percent Auto 0.3 % (0.2-1.2); Eosinophils Absolute Auto 0.1 K/mm3 (0-0.3); Eosinophils Percent Auto 1.8 % (0-4.4); Hematocrit 36.4 % (37.0-47.0); Hemoglobin 11.8 g/dL (12.0-15.0); Immature Granulocyte Absolute 0.02 K/mm3 (0.00-0.031); Immature Granulocyte Percent A 0.6 % (0-0.5); Lymphocytes Absolute Auto 0.88 K/mm3 (0.9-3.2); Mean Corpuscular HGB Conc 32.4 g/dl (32-36); Mean Corpuscular Hemoglobin 27.4 pg (26-34); Mean Corpuscular Volume 84.5 fl (80-100); Mean Platelet Volume 10.8 fl (7.4-10.4); Monocytes Absolute Auto 0.5 K/mm3 (0.1-0.6); Monocytes Percent Auto 14.4 % (2.6-8.5); Neutrophils Absolute Auto 1.8 K/mm3 (1.3-6.7); Neutrophils Percent Auto 55.9 % (45.5-73.1); Platelet Count Result 200 k/mm3 (150-375); Red Blood Count 4.31 M/mm3 (4.2-5.4); White Blood Count 3.3 K/mm3 (4.5-10.0)
[2021-04-13 06:04] LABS: Prothrombin Time 12.8 Seconds (11.1-14.7)
[2021-04-13 06:05] LABS: Alanine Aminotransferase 44 U/L (4-35); Albumin Level 3.4 g/dL (3.5-5.1); Alkaline Phosphatase 124 U/L (38-126); Anion Gap 4 mmol/L (8-16); Aspartate Amino Transferase 34 U/L (14-36); Bilirubin,Total 0.3 mg/dL (0.2-1.3); Blood Urea Nitrogen 22 mg/dL (7-17); Calcium 8.6 mg/dL (8.4-10.2); Carbon Dioxide 31 mmol/L (22-30); Chloride 99 mmol/L (98-107); Estimated CRCL calculation 55 ml/min; Estimated Glomerular Filt Rate > 60; Glucose 119 mg/dL (65-110); Magnesium 2.2 mg/dL (1.6-2.3); Phosphorus 4.8 mg/dL (2.5-4.5); Potassium 3.8 mmol/L (3.4-5.0); Sodium 134 mmol/L (137-145)
[2021-04-13 06:09] LABS: Transferrin 182 mg/dL (206-381)
[2021-04-13] MEDS: LEVOTHYROXINE SODIUM INJ 100 MCG/5 ML VIAL 50 MCG IV PUSH (06:36)
[2021-04-13 06:38] LABS: Glucose Point of Care 106 mg/dl (65-105)
[2021-04-13] MEDS: ENOXAPARIN 40 MG/0.4 ML SYRINGE SUB-Q (08:40)
[2021-04-13] MEDS: HYDROmorphone HCL INJ (*CRX) 1 MG/ML SYR IV PUSH ×3 (08:41→19:59)
[2021-04-13] MEDS: SILVERGEL (ELTA) 45 ML 1 APPLIC TOPICAL (08:41)
--- NOTE | 2021-04-13 09:32 | PM.PNGS ---
Progress Note: A&P Assessment and Plan (1) Hypoalbuminemia due to protein-calorie malnutrition: Onset Date: ~03/2021 Code(s): E88.09 - Other disorders of plasma-protein metabolism, not elsewhere classified; E46 - Unspecified protein-calorie malnutrition Status: Acute Assessment and Plan: Patient started on peripheral PPN yesterday p.m. in view of significant length of NPO status over the last week. (pre albumin checked 04/10 was moderately depleted at 12.6). (2) Pericardial effusion: Code(s): I31.3 - Pericardial effusion (noninflammatory) Status: Acute Assessment and Plan: Mild to moderate on echocardiogram with no decrease ejection fraction mentioned. (3) Bradycardia: Code(s): R00.1 - Bradycardia, unspecified Status: Acute Assessment and Plan: Stable in the 50s. (4) Small bowel obstruction: Onset Date: ~03/2021 Code(s): K56.609 - Unspecified intestinal obstruction, unspecified as to partial versus complete obstruction Status: Acute Assessment and Plan: Patient tried clear liquids yesterday after having several bowel movements. However in the late evening she had a setback with some vomiting. Therefore NG tube was replaced and since then about 500 cc of cloudy yellowish fluid has come out the NG. Plain x-rays, obstructive series still pending for today. I have discussed with the patient that this is a setback and is not good. This portends that more than likely she has a near complete obstruction rather than a partial obstruction or just an adhesive band that has caused a partial obstruction and then released and allowed some fluid through for the 2 previous days. Therefore, I have discussed with her again pursuing transfer to [place] to her pancreatic surgeon Dr. Bobo Westbrook. I believe that if she has a small bowel follow-through( which I believe would be the right next step) it might be better to have it done at the facility where the surgical intervention may take place. I also believe that the patient will probably have an adverse abdomen in view of 3 previous surgeries including the recent November 2020 Whipple procedure. At this time she has given me permission to pursue transfer and we will try to see if we can work that out today she seems to be stable and could possibly then have a small-bowel follow-through and further workup as he sees fit at [place] in a tertiary care setting. (Patient does still have a stent in her pancreatic duct). Subjective Subjective Date/Time Seen: 04/13/21 09:32 patient states she feels somewhat better with the NG tube in. Less abdominal pain this morning. Sitting on the bed dye at this time and feels like she will have a bowel movement but has not had anything happen. I let her know that most of her labs look okay this morning. She has not had her ordered obstructive series of the abdomen yet today. Review of Systems Review of Systems: All systems reviewed & are unremarkable except as noted in HPI and below Constitutional: Constitutional: Reports as per HPI, Denies body ache(s), Denies chills, Denies fatigue, Denies fever(s), Denies headache(s) and Denies night sweats Eyes: Eyes: Reports no additional eye complaints and Denies change in vision ENT: Reports system reviewed and no additional complaints, except as documented, Denies dizziness and Denies headache(s) Cardiovascular: Cardiovascular: Reports no additional cardiovascular complaints, Denies chest pain, Denies leg edema and Denies dyspnea Respiratory: Respiratory: Reports no additional respiratory complaints, Denies cough and Denies dyspnea Gastrointestinal: Gastrointestinal: Reports as per HPI, Reports abdominal pain ( Mainly mid and upper abdomen), Reports GI cramping ( occasionally lower abdomen), Denies heartburn, Denies diarrhea and Reports nausea ( mild but somewhat improved with NG in.) Genitourinary: Genitourinary: Denies hematuria and De
--- NOTE | 2021-04-13 11:28 | PM.TDS ---
Transfer Discharge Sum: Prov Provider Date of admission: 04/07/21 14:32 Primary care physician: Andreas Hubbard, Admitting clinician: Terrance Lawson MD Consults: 04/07/21 Consult to Physician Routine Comment: Consulting Provider: Nirav Villatoro Reason for consultation: bradycardia, hypotension Has provider been notified: Yes Consult to Physician Routine Comment: Consulting Provider: Ren Schwartz Reason for consultation: Bowel obstruction Has provider been notified: Yes 04/08/21 Wound/ET Consult Routine Reason for Consult:: Open abdominal wound 04/11/21 13:57 Consult to Dietitian Routine Reason for Consult:: TPN DS: Discharge Diagnosis Discharge Diagnosis (1) Hypothyroidism associated with surgical procedure: Code(s): E89.0 - Postprocedural hypothyroidism Status: Acute Assessment and Plan: on IV levothyroxine. History of thyroidectomy in the past (2) Small bowel obstruction: Onset Date: ~03/2021 Code(s): K56.609 - Unspecified intestinal obstruction, unspecified as to partial versus complete obstruction Status: Acute Assessment and Plan: On conservative treatment. Continue to refuse NG tube Reiterated importance of NG tube placement with patient to the visit. General surgery has been consulted and following. Status post NG tube placement 04/08/2021 X-ray abdomen with persistent small-bowel obstruction, today's x-ray with mild improvement NG has been displaced Further care per General surgery (3) Bradycardia: Code(s): R00.1 - Bradycardia, unspecified Status: Acute Assessment and Plan: Persistent sinus bradycardia avoid AV darren blockers. Echocardiogram ordered for pericardial effusion. Discussed with cardiology Echo 04/08/2021 EF 65-70% grade 1 diastolic dysfunction mild MR/TR/[place] mild to moderate pericardial effusion without tamponade could be due to hypothyroidism (4) Pericardial effusion: Code(s): I31.3 - Pericardial effusion (noninflammatory) Status: Acute Assessment and Plan: No signs of tamponade. Echocardiogram ordered and reviewed Transfer Discharge Sum: Med Medications Active and Home Medications: Home Medications amlodipine 10 mg PO DAILY 04/08/21 [History Confirmed 04/08/21] aspirin [Adult Low Dose Aspirin] 81 mg PO DAILY 04/08/21 [History Confirmed 04/08/21] potassium chloride [K+ Potassium] 40 meq PO DAILY 04/08/21 [History Confirmed 04/08/21] Active Medications Bisacodyl (Bisacodyl 10 Mg Suppository) 10 mg RECTAL QAM PRN PRN Reason: Constipation Last Admin: 04/11/21 09:26 Dose: 10 mg Documented by: Dextrose (Dextrose 50% 25 Gm/50 Ml Syringe) 12.5 gm IV PUSH PRN PRN; Protocol PRN Reason: Hypoglycemia Enoxaparin Sodium (Enoxaparin 40 Mg/0.4 Ml Syringe) 40 mg SUB-Q DAILY [facility] Last Admin: 04/13/21 08:40 Dose: 40 mg Documented by: Fentanyl Citrate (Fentanyl Citrate Inj (*Crx) 100 Mcg/2 Ml Vial) 12.5 mcg IV PUSH Q2H PRN PRN Reason: BREAKTHROUGH PAIN OR NPO Glucagon (Glucagon For Inj 1 Mg Vial) 1 mg IM PRN PRN; Protocol PRN Reason: Hypoglycemia Glucose (Glucose Oral Gel 15 Gm Of Glucse In 37.5 Gm Tube) 15 gm PO PRN PRN; Protocol PRN Reason: Hypoglycemia Hydromorphone HCl (Hydromorphone Hcl Inj (*Crx) 1 Mg/Ml Syr) 1 mg IV PUSH Q2H PRN PRN Reason: Pain Rated 7-10 Last Admin: 04/13/21 08:41 Dose: 1 mg Documented by: Hydromorphone HCl (Hydromorphone Hcl Inj (*Crx) 1 Mg/Ml Syr) 0.5 mg IV PUSH Q2H PRN PRN Reason: Pain Rated 4-6 Last Admin: 04/13/21 02:04 Dose: 0.5 mg Documented by: Dextrose (Dextrose 10%) 1,000 mls @ 50 mls/hr IV CONT .Q20H PRN PRN Reason: if PN is interrupted Amino Acids/Electrolytes/Dextrose (Clinimix E 4.25%/5% Solution) 2,000 mls @ 80 mls/hr IV CONT .Q24H JUAN M; Protocol Last Admin: 04/12/21 14:40 Dose: 80 mls/hr Documented by: Fat Emulsion Intravenous (Lipids 20%) 250 mls @ 20.833 mls/hr IVPB Q24H JUAN M Last Inf
[2021-04-13 11:55] LABS: Glucose Point of Care 101 mg/dl (65-105)
[2021-04-13 13:25] LABS: EDCOVIDSCREEN Negative (Negative)
[2021-04-13] MEDS: AMINO ACIDS 4.25%/D5W/LYTES/CA 2,000 ML 80 ML IV CONT (16:37)
[2021-04-13] MEDS: FAT EMULSIONS IV 20% 250 ML 20.83 ML IVPB (16:38)
--- NOTE | 2021-04-13 17:41 | PM.IMPN ---
Progress Note: A&P Assessment and Plan (1) Hypothyroidism associated with surgical procedure: Code(s): E89.0 - Postprocedural hypothyroidism Status: Acute Assessment and Plan: on IV levothyroxine. History of thyroidectomy in the past (2) Small bowel obstruction: Onset Date: ~03/2021 Code(s): K56.609 - Unspecified intestinal obstruction, unspecified as to partial versus complete obstruction Status: Acute Assessment and Plan: On conservative treatment. Continue to refuse NG tube Reiterated importance of NG tube placement with patient to the visit. General surgery has been consulted and following. Status post NG tube placement 04/08/2021 X-ray abdomen with persistent small-bowel obstruction, today's x-ray with mild improvement NG has replaced General surgery, following, recommendations appreciated Pt will require tertiary care; will need small bowel follow through and possible surgical intervention, will tx to [facility], Dr. Montoya has accepted, bed pending (3) Bradycardia: Code(s): R00.1 - Bradycardia, unspecified Status: Acute Assessment and Plan: Persistent sinus bradycardia avoid AV darren blockers. Echocardiogram ordered for pericardial effusion. 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 She was in her usual state of health when she got up early this morning and went to work. 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 She went to the bathroom and she held the urge to defecate however she was not able to move her bowels. Additionally she started to feel a pressure or gas-like sensation in her midsternal chest region. While walking out of the bathroom she felt lightheaded, weak, and somewhat diaphoretic. Coworkers took her vital signs and reportedly she was hypotensive with blood pressures in the 80s over 40s and bradycardic with a heart rate in the 40s. With IV fluid rehydration her blood pressures have since stabilized however she continues to be bradycardic. Patient reports to me that her baseline heart rate is somewhere in the 60s or 70s. EKG shows some nonspecific T wave changes and bradycardia. CT scan of the abdomen pelvis showed a small bowel obstruction with a moderate size pericardial effusion and she is being admitted in this setting. At the time my evaluation she feels much better but she continues to have mild abdominal discomfort that comes in waves. She has been passing a small amount of gas but she has not had a bowel movement since arrival. She has history of bowel obstruction in March 2019 requiring adhesiolysis. More recently she had a Whipple procedure due to findings of a pancreatic cystic lesion with concerns for possible malignancy (pathology was benign) done in November 2020 at [place] which was complicated by a postoperative wound infection leaving a large open abdominal wound treated with wound VAC. She denies syncope, fever, chills, sweats, exertional chest pain, orthopnea, PND, palpitations, shortness of breath, and vomiting.
[2021-04-13 17:57] LABS: Glucose Point of Care 103 mg/dl (65-105)
--- NOTE | 2021-04-13 18:40 | PM.TDS ---
Transfer Discharge Sum: Prov Provider Date of admission: 04/07/21 14:32 Primary care physician: Andreas Hubbard, Admitting clinician: Terrance Lawson MD Attending physician on admission: Terrance Lawson Consults: 04/07/21 Consult to Physician Routine Comment: Consulting Provider: Nirav Villatoro Reason for consultation: bradycardia, hypotension Has provider been notified: Yes Consult to Physician Routine Comment: Consulting Provider: Ren Schwartz Reason for consultation: Bowel obstruction Has provider been notified: Yes 04/08/21 Wound/ET Consult Routine Reason for Consult:: Open abdominal wound 04/11/21 13:57 Consult to Dietitian Routine Reason for Consult:: TPN Attending physician on discharge: Terrance Lawson Discharging clinician: Kassi Zhou Anticipated date of transfer: 04/13/21 Receiving physician/facility: [facility] DS: Admitting Diagnosis Discharge Date 04/13/2021 Admitting Diagnosis Small bowel obstruction DS: Discharge Diagnosis Discharge Diagnosis (1) Hypothyroidism associated with surgical procedure: Code(s): E89.0 - Postprocedural hypothyroidism Status: Acute Assessment and Plan: on IV levothyroxine. History of thyroidectomy in the past (2) Small bowel obstruction: Onset Date: ~03/2021 Code(s): K56.609 - Unspecified intestinal obstruction, unspecified as to partial versus complete obstruction Status: Acute Assessment and Plan: On conservative treatment. Continue to refuse NG tube Reiterated importance of NG tube placement with patient to the visit. General surgery has been consulted and following. Status post NG tube placement 04/08/2021 X-ray abdomen with persistent small-bowel obstruction, today's x-ray with mild improvement NG has replaced General surgery, following, recommendations appreciated Pt will require tertiary care; will need small bowel follow through and possible surgical intervention, will tx to [facility], Dr. Montoya has accepted, bed pending (3) Bradycardia: Code(s): R00.1 - Bradycardia, unspecified Status: Acute Assessment and Plan: Persistent sinus bradycardia avoid AV darren blockers. Echocardiogram ordered for pericardial effusion. Discussed with cardiology Echo 04/08/2021 EF 65-70% grade 1 diastolic dysfunction mild MR/TR/SD mild to moderate pericardial effusion without tamponade could be due to hypothyroidism Monitor (4) Pericardial effusion: Code(s): I31.3 - Pericardial effusion (noninflammatory) Status: Acute Assessment and Plan: No signs of tamponade Echocardiogram ordered and reviewed Transfer Discharge Sum: Med Medications Active and Home Medications: Home Medications amlodipine 10 mg PO DAILY 04/08/21 [History Confirmed 04/08/21] aspirin [Adult Low Dose Aspirin] 81 mg PO DAILY 04/08/21 [History Confirmed 04/08/21] potassium chloride [K+ Potassium] 40 meq PO DAILY 04/08/21 [History Confirmed 04/08/21] Active Medications Bisacodyl (Bisacodyl 10 Mg Suppository) 10 mg RECTAL QAM PRN PRN Reason: Constipation Last Admin: 04/11/21 09:26 Dose: 10 mg Documented by: Dextrose (Dextrose 50% 25 Gm/50 Ml Syringe) 12.5 gm IV PUSH PRN PRN; Protocol PRN Reason: Hypoglycemia Enoxaparin Sodium (Enoxaparin 40 Mg/0.4 Ml Syringe) 40 mg SUB-Q DAILY JUAN M Last Admin: 04/13/21 08:40 Dose: 40 mg Documented by: Fentanyl Citrate (Fentanyl Citrate Inj (*Crx) 100 Mcg/2 Ml Vial) 12.5 mcg IV PUSH Q2H PRN PRN Reason: BREAKTHROUGH PAIN OR NPO Glucagon (Glucagon For Inj 1 Mg Vial) 1 mg IM PRN PRN; Protocol PRN Reason: Hypoglycemia Glucose (Glucose Oral Gel 15 Gm Of Glucse In 37.5 Gm Tube) 15 gm PO PRN PRN; Protocol PRN Reason: Hypoglycemia Hydromorphone HCl (Hydromorphone Hcl Inj (*Crx) 1 Mg/Ml Syr) 1 mg IV PUSH Q2H PRN PRN Reason: Pain Rated 7-10 Last Admin: 04/13/21 16:39 Dose: 1 mg Documented by: Hydromorphone HCl
[2021-04-14] VITALS: PULSE 55
--- NOTE | 2021-04-14 00:20 | PC.NURSE ---
[facility] transfer center notified EMS continues to delay picker tender helper times for transfer. Informed them that the next anticipated picker tender helper time is 0130, however this is likely to be delayed again. Information confirmed and documented by transfer center.
[2021-04-14 00:29] LABS: Glucose Point of Care 108 mg/dl (65-105)
[2021-04-14 04:00] VITALS: PULSE 52
[2021-04-14 04:53] VITALS: BP 131/81; PULSE 76; RESP 14; TEMP 37; O2SAT 100
[2021-04-14] MEDS: HYDROmorphone HCL INJ (*CRX) 1 MG/ML SYR 0.5 MG IV PUSH (04:59)
[2021-04-14] MEDS: ONDANSETRON INJ 4 MG/2 ML VIAL IV PUSH (05:00)
[2021-04-14 06:01] LABS: Basophils Percent Auto 0.6 % (0.2-1.2); Eosinophils Absolute Auto 0.1 K/mm3 (0-0.3); Eosinophils Percent Auto 1.9 % (0-4.4); Hematocrit 33.1 % (37.0-47.0); Hemoglobin 10.8 g/dL (12.0-15.0); Immature Granulocyte Absolute 0.02 K/mm3 (0.00-0.031); Immature Granulocyte Percent A 0.6 % (0-0.5); Lymphocytes Percent Auto 25.5 % (18.3-44.2); Mean Corpuscular HGB Conc 32.6 g/dl (32-36); Mean Corpuscular Hemoglobin 27.6 pg (26-34); Mean Corpuscular Volume 84.7 fl (80-100); Mean Platelet Volume 10.3 fl (7.4-10.4); Monocytes Absolute Auto 0.5 K/mm3 (0.1-0.6); Monocytes Percent Auto 14.6 % (2.6-8.5); Neutrophils Absolute Auto 1.8 K/mm3 (1.3-6.7); Neutrophils Percent Auto 56.8 % (45.5-73.1); Platelet Count Result 210 k/mm3 (150-375); Red Blood Count 3.91 M/mm3 (4.2-5.4); Red Cell Distribution Width 17.2 % (11.5-14.5); White Blood Count 3.1 K/mm3 (4.5-10.0)
[2021-04-14 06:14] LABS: Anion Gap 8 mmol/L (8-16); Blood Urea Nitrogen 21 mg/dL (7-17); Calcium 8.3 mg/dL (8.4-10.2); Carbon Dioxide 27 mmol/L (22-30); Chloride 98 mmol/L (98-107); Estimated CRCL calculation 55 ml/min; Estimated Glomerular Filt Rate > 60; Glucose 118 mg/dL (65-110); Phosphorus 4.3 mg/dL (2.5-4.5); Potassium 3.7 mmol/L (3.4-5.0); Sodium 133 mmol/L (137-145)
[2021-04-14 06:57] LABS: Glucose Point of Care 116 mg/dl (65-105)
[2021-04-14] MEDS: LEVOTHYROXINE SODIUM INJ 100 MCG/5 ML VIAL 50 MCG IV PUSH (07:02)
[2021-04-14 08:00] VITALS: PULSE 58
[2021-04-14] MEDS: HYDROmorphone HCL INJ (*CRX) 1 MG/ML SYR IV PUSH (08:54)
[2021-04-14] MEDS: ENOXAPARIN 40 MG/0.4 ML SYRINGE SUB-Q (09:00)
--- NOTE | 2021-04-14 10:14 | PC.NURSE ---
Patient transfer to [facility]
== END 2021-04-14 10:13 | disposition short-term general hospital (02) | DRG 389 ==
LOC: ANHED 09:43 → ANHIMU 21:54 → ANH3MED 04-17 10:34 → ANHIMU 04-17 10:34
PROVIDERS: Internal Medicine Cardiovascular Disease; Surgery; Admitting Provider Internal Medicine; Emergency Provider Emergency Medicine; PCP Family Medicine; Visit Provider Nurse Practitioner Adult Health
DX: K56.609 Unspecified intestinal obstruction, unspecified as to partial versus complete obstruction (principal); I31.3 Pericardial effusion (noninflammatory); E46 Unspecified protein-calorie malnutrition; Z20.822 Contact with and (suspected) exposure to COVID-19; E89.0 Postprocedural hypothyroidism; R00.1 Bradycardia, unspecified; J44.9 Chronic obstructive pulmonary disease, unspecified; I10 Essential (primary) hypertension; E87.6 Hypokalemia; E88.09 Other disorders of plasma-protein metabolism, not elsewhere classified; Z85.118 Personal history of other malignant neoplasm of bronchus and lung; Z85.850 Personal history of malignant neoplasm of thyroid; Z85.528 Personal history of other malignant neoplasm of kidney; Z90.5 Acquired absence of kidney; Z90.49 Acquired absence of other specified parts of digestive tract; Z90.410 Acquired total absence of pancreas; Z87.891 Personal history of nicotine dependence; Z68.23 Body mass index [BMI] 23.0-23.9, adult
CPT/HCPCS: 36415; 74018; 74019; 74177; 80048; 80053; 82948; 83605; 83690; 83735; 84100; 84134; 84436; 84443; 84466; 84478; 84484; 85025; 85027; 85610; 85730; 87070; 87205; 87426; 93005; 93306; 96361; 96374; 96375; 99285; A9270; C9803; J1170; J1650; J2405; J2550; J3480; J7040; J7120; Q9967

== ENCOUNTER 2021-05-06 19:08 | Outpatient (NON) | payer MEDICAID, SELFPAY ==
[2021-05-06 20:25] LABS: Anion Gap 8 mmol/L (8-16); Blood Urea Nitrogen 33 mg/dL (7-18); Calcium 8.4 mg/dL (8.5-10.1); Carbon Dioxide 25 mmol/L (21-32); Chloride 102 mmol/L (98-108); Estimated Glomerular Filt Rate > 60; Glucose 92 mg/dL (70-99); Magnesium 2.4 mg/dL (1.8-2.4); Osmolality Calculated 287 mOsm/kg (285-295); Potassium 5.2 mmol/L (3.5-5.1); Sodium 135 mmol/L (136-145)
== END 2021-05-06 19:09 | disposition home or self-care (01) ==
LOC: CHSLAB 19:10
PROVIDERS: PCP Nurse Practitioner Family; Visit Provider Nurse Practitioner Family
DX: E43 Unspecified severe protein-calorie malnutrition (principal)
CPT/HCPCS: 36415; 80048; 83735; 84100

== ENCOUNTER 2021-05-07 13:47 | Outpatient (NON) | payer MEDICAID, SELFPAY ==
[2021-05-07 14:40] LABS: Basophils Absolute Auto 0.03 K/mm3 (0.00-0.10); Basophils Percent Auto 0.4 % (0.0-1.0); Eosinophils Absolute Auto 0.19 K/mm3 (0.02-0.50); Eosinophils Percent Auto 2.8 % (1.0-6.0); Hemoglobin 8.2 g/dL (11.7-13.8); Immature Granulocyte Absolute 0.05 K/mm3 (0.00-0.00); Immature Granulocyte Percent A 0.7 % (0.0-0.0); Lymphocytes Absolute Auto 0.98 K/mm3 (1.10-4.50); Lymphocytes Percent Auto 14.6 % (18.0-42.0); Mean Corpuscular HGB Conc 31.5 g/dL (32.0-36.0); Mean Corpuscular Hemoglobin 27.5 pg (27.0-31.0); Mean Corpuscular Volume 87.2 fL (78.0-102.0); Mean Platelet Volume 9.8 fl (9.2-11.8); Monocytes Absolute Auto 0.67 K/mm3 (0.10-0.90); Neutrophils Absolute Auto 4.8 K/mm3 (1.7-7.2); Neutrophils Percent Auto 71.5 % (50.0-70.0); Platelet Count Result 487 K/mm3 (150-420); Red Blood Count 2.98 M/mm3 (4.20-5.40); Red Cell Distribution Width 18.6 % (11.6-14.4); White Blood Count 6.7 K/mm3 (4.8-10.8)
[2021-05-07 14:56] LABS: Alanine Aminotransferase 66 U/L (14-59); Albumin Level 2.4 g/dL (3.4-5.0); Alkaline Phosphatase 257 U/L (46-116); Anion Gap 10 mmol/L (8-16); Aspartate Amino Transferase 29 U/L (15-37); Bilirubin,Total 0.3 mg/dL (0.00-1.00); Blood Urea Nitrogen 33 mg/dL (7-18); Calcium 8.3 mg/dL (8.5-10.1); Carbon Dioxide 24 mmol/L (21-32); Chloride 102 mmol/L (98-108); Estimated Glomerular Filt Rate > 60; Glucose 91 mg/dL (70-99); Osmolality Calculated 289 mOsm/kg (285-295); Potassium 4.7 mmol/L (3.5-5.1); Sodium 136 mmol/L (136-145); Total Protein 6.8 g/dL (6.4-8.2)
== END 2021-05-07 13:48 | disposition home or self-care (01) ==
LOC: CHSLAB 13:49
PROVIDERS: Visit Provider Nurse Practitioner Family
DX: E43 Unspecified severe protein-calorie malnutrition (principal)
CPT/HCPCS: 36415; 80053; 85025

== ENCOUNTER 2021-05-11 15:36 | Outpatient (NON) | payer MEDICAID, SELFPAY ==
[2021-05-11 16:08] LABS: Basophils Absolute Auto 0.03 K/mm3 (0.00-0.10); Basophils Percent Auto 0.5 % (0.0-1.0); Eosinophils Absolute Auto 0.19 K/mm3 (0.02-0.50); Hematocrit 27.2 % (35.0-42.0); Hemoglobin 8.5 g/dL (11.7-13.8); Immature Granulocyte Absolute 0.04 K/mm3 (0.00-0.00); Immature Granulocyte Percent A 0.6 % (0.0-0.0); Lymphocytes Absolute Auto 1.13 K/mm3 (1.10-4.50); Lymphocytes Percent Auto 18.1 % (18.0-42.0); Mean Corpuscular HGB Conc 31.3 g/dL (32.0-36.0); Mean Corpuscular Volume 86.3 fL (78.0-102.0); Monocytes Absolute Auto 0.53 K/mm3 (0.10-0.90); Monocytes Percent Auto 8.5 % (2.0-11.0); Neutrophils Absolute Auto 4.3 K/mm3 (1.7-7.2); Neutrophils Percent Auto 69.3 % (50.0-70.0); Nucleated Red Blood Cells Absolute Auto 0.02 K/mm3 (0.00-0.00); Nucleated Red Blood Cells Perc 0.3 % (0-0.0); Platelet Count Result 443 K/mm3 (150-420); Red Blood Count 3.15 M/mm3 (4.20-5.40); Red Cell Distribution Width 18.1 % (11.6-14.4); White Blood Count 6.2 K/mm3 (4.8-10.8)
[2021-05-11 16:18] LABS: Alanine Aminotransferase 121 U/L (14-59); Albumin Level 2.4 g/dL (3.4-5.0); Alkaline Phosphatase 227 U/L (46-116); Anion Gap 9 mmol/L (8-16); Aspartate Amino Transferase 74 U/L (15-37); Bilirubin,Total 0.3 mg/dL (0.00-1.00); Blood Urea Nitrogen 28 mg/dL (7-18); Calcium 8.3 mg/dL (8.5-10.1); Carbon Dioxide 25 mmol/L (21-32); Chloride 104 mmol/L (98-108); Estimated Glomerular Filt Rate > 60; Glucose 90 mg/dL (70-99); Magnesium 2.3 mg/dL (1.8-2.4); Osmolality Calculated 291 mOsm/kg (285-295); Phosphorus 4.4 mg/dL (2.6-4.7); Sodium 138 mmol/L (136-145); Total Protein 6.7 g/dL (6.4-8.2)
== END 2021-05-11 15:37 | disposition home or self-care (01) ==
LOC: CHSLAB 15:37
PROVIDERS: Visit Provider Nurse Practitioner Family
DX: E43 Unspecified severe protein-calorie malnutrition (principal)
CPT/HCPCS: 80053; 83735; 84100; 85025

== ENCOUNTER 2021-05-30 17:51 | Outpatient (NON) | payer MEDICAID, SELFPAY ==
[2021-05-30 18:08] LABS: Anion Gap 13 mmol/L (8-16); Blood Urea Nitrogen 9 mg/dL (7-18); Calcium 8.7 mg/dL (8.5-10.1); Carbon Dioxide 25 mmol/L (21-32); Chloride 100 mmol/L (98-108); Estimated Glomerular Filt Rate > 60; Glucose 78 mg/dL (70-99); Osmolality Calculated 283 mOsm/kg (285-295); Phosphorus 4.2 mg/dL (2.6-4.7); Potassium 3.1 mmol/L (3.5-5.1); Sodium 138 mmol/L (136-145)
== END 2021-05-30 17:52 | disposition home or self-care (01) ==
LOC: CHSLAB 17:52
PROVIDERS: Visit Provider Nurse Practitioner Family
DX: T81.49XA Infection following a procedure, other surgical site, initial encounter (principal); T81.31XA Disruption of external operation (surgical) wound, not elsewhere classified, initial encounter
CPT/HCPCS: 36415; 80048; 83735; 84100

== ENCOUNTER 2021-06-02 16:07 | Outpatient (NON) | payer MEDICAID, SELFPAY ==
[2021-06-02 16:34] LABS: Hematocrit 37.6 % (35.0-42.0); Hemoglobin 11.5 g/dL (11.7-13.8); Mean Corpuscular HGB Conc 30.6 g/dL (32.0-36.0); Mean Corpuscular Hemoglobin 25.9 pg (27.0-31.0); Mean Corpuscular Volume 84.7 fL (78.0-102.0); Mean Platelet Volume 10.5 fl (9.2-11.8); Platelet Count Result 267 K/mm3 (150-420); Red Blood Count 4.44 M/mm3 (4.20-5.40); Red Cell Distribution Width 15.9 % (11.6-14.4); White Blood Count 3.9 K/mm3 (4.8-10.8)
[2021-06-02 16:52] LABS: Alanine Aminotransferase 33 U/L (14-59); Albumin Level 2.7 g/dL (3.4-5.0); Alkaline Phosphatase 134 U/L (46-116); Anion Gap 11 mmol/L (8-16); Aspartate Amino Transferase 46 U/L (15-37); Bilirubin,Total 0.4 mg/dL (0.00-1.00); Blood Urea Nitrogen 24 mg/dL (7-18); Calcium 8.3 mg/dL (8.5-10.1); Carbon Dioxide 28 mmol/L (21-32); Chloride 104 mmol/L (98-108); Estimated Glomerular Filt Rate > 60; Glucose 81 mg/dL (70-99); Magnesium 2.3 mg/dL (1.8-2.4); Osmolality Calculated 299 mOsm/kg (285-295); Phosphorus 3.8 mg/dL (2.6-4.7); Potassium 3.6 mmol/L (3.5-5.1); Sodium 143 mmol/L (136-145); Total Protein 7.1 g/dL (6.4-8.2)
[2021-06-02 17:08] LABS: Band Neutrophils Percent 0 % (0-6); Basophils Percent Manual 0 % (0-1); Eosinophils Absolute Manual 0.03 K/mm3 (0.02-0.5); Eosinophils Percent Manual 1 % (1-6); Lymphocytes Absolute Manual 0.97 K/mm3 (1.1-4.5); Lymphocytes Percent Manual 25 % (18-44); Monocytes Absolute Manual 0.39 K/mm3 (0.1-0.90); Monocytes Percent Manual 10 % (3-9); Neutrophils Absolute Manual 2.49 K/mm3 (1.7-7.2); Neutrophils Percent Manual 64 % (46-73); Platelet Estimate Adequate (Adequate); Total Cells Counted 100
== END 2021-06-02 16:08 | disposition home or self-care (01) ==
LOC: CHSLAB 16:21
DX: T81.31XA Disruption of external operation (surgical) wound, not elsewhere classified, initial encounter (principal); T81.49XA Infection following a procedure, other surgical site, initial encounter
CPT/HCPCS: 36415; 80053; 83735; 84100; 85025

== ENCOUNTER 2021-06-08 14:56 | Outpatient (NON) | payer MEDICAID, SELFPAY ==
[2021-06-08 15:42] LABS: Basophils Absolute Auto 0.01 K/mm3 (0.00-0.10); Basophils Percent Auto 0.2 % (0.0-1.0); Eosinophils Absolute Auto 0.05 K/mm3 (0.02-0.50); Eosinophils Percent Auto 1.2 % (1.0-6.0); Hemoglobin 9.8 g/dL (11.7-13.8); Immature Granulocyte Absolute 0.01 K/mm3 (0.00-0.00); Immature Granulocyte Percent A 0.2 % (0.0-0.0); Lymphocytes Absolute Auto 1.04 K/mm3 (1.10-4.50); Lymphocytes Percent Auto 25.2 % (18.0-42.0); Mean Corpuscular HGB Conc 30.6 g/dL (32.0-36.0); Mean Corpuscular Hemoglobin 26.1 pg (27.0-31.0); Mean Corpuscular Volume 85.1 fL (78.0-102.0); Mean Platelet Volume 10.8 fl (9.2-11.8); Monocytes Absolute Auto 0.26 K/mm3 (0.10-0.90); Monocytes Percent Auto 6.3 % (2.0-11.0); Neutrophils Absolute Auto 2.8 K/mm3 (1.7-7.2); Neutrophils Percent Auto 66.9 % (50.0-70.0); Platelet Count Result 305 K/mm3 (150-420); Red Blood Count 3.76 M/mm3 (4.20-5.40); Red Cell Distribution Width 15.4 % (11.6-14.4); White Blood Count 4.1 K/mm3 (4.8-10.8)
[2021-06-08 15:51] LABS: Alanine Aminotransferase 45 U/L (14-59); Alkaline Phosphatase 169 U/L (46-116); Anion Gap 11 mmol/L (8-16); Aspartate Amino Transferase 30 U/L (15-37); Bilirubin,Total 0.5 mg/dL (0.00-1.00); Blood Urea Nitrogen 12 mg/dL (7-18); Carbon Dioxide 25 mmol/L (21-32); Chloride 103 mmol/L (98-108); Estimated Glomerular Filt Rate > 60; Glucose 92 mg/dL (70-99); Magnesium 2.1 mg/dL (1.8-2.4); Osmolality Calculated 287 mOsm/kg (285-295); Phosphorus 4.5 mg/dL (2.6-4.7); Potassium 4.4 mmol/L (3.5-5.1); Sodium 139 mmol/L (136-145); Total Protein 7.5 g/dL (6.4-8.2)
== END 2021-06-08 14:57 | disposition home or self-care (01) ==
LOC: CHSLAB 14:59
DX: K65.1 Peritoneal abscess (principal); T81.31XA Disruption of external operation (surgical) wound, not elsewhere classified, initial encounter; T81.49XA Infection following a procedure, other surgical site, initial encounter
CPT/HCPCS: 80053; 83735; 84100; 85025

== ENCOUNTER 2021-06-16 17:38 | Outpatient (NON) | payer MEDICAID, SELFPAY ==
[2021-06-16 18:31] LABS: Hematocrit 34.7 % (35.0-42.0); Hemoglobin 10.4 g/dL (11.7-13.8); Mean Corpuscular Hemoglobin 25.3 pg (27.0-31.0); Mean Corpuscular Volume 84.4 fL (78.0-102.0); Mean Platelet Volume 10.9 fl (9.2-11.8); Platelet Count Result 257 K/mm3 (150-420); Red Blood Count 4.11 M/mm3 (4.20-5.40); Red Cell Distribution Width 14.8 % (11.6-14.4); White Blood Count 3.6 K/mm3 (4.8-10.8)
[2021-06-16 18:40] LABS: Alanine Aminotransferase 27 U/L (14-59); Alkaline Phosphatase 176 U/L (46-116); Anion Gap 13 mmol/L (8-16); Aspartate Amino Transferase 23 U/L (15-37); Bilirubin,Total 0.6 mg/dL (0.00-1.00); Blood Urea Nitrogen 17 mg/dL (7-18); Calcium 9.1 mg/dL (8.5-10.1); Carbon Dioxide 25 mmol/L (21-32); Chloride 105 mmol/L (98-108); Estimated Glomerular Filt Rate > 60; Glucose 84 mg/dL (70-99); Magnesium 1.5 mg/dL (1.8-2.4); Osmolality Calculated 296 mOsm/kg (285-295); Phosphorus 4.6 mg/dL (2.6-4.7); Potassium 4.2 mmol/L (3.5-5.1); Sodium 143 mmol/L (136-145); Total Protein 7.7 g/dL (6.4-8.2)
[2021-06-16 19:31] LABS: Band Neutrophils Percent 0 % (0-6); Basophils Percent Manual 0 % (0-1); Eosinophils Absolute Manual 0.07 K/mm3 (0.02-0.5); Eosinophils Percent Manual 2 % (1-6); Lymphocytes Absolute Manual 0.75 K/mm3 (1.1-4.5); Lymphocytes Percent Manual 21 % (18-44); Monocytes Absolute Manual 0.32 K/mm3 (0.1-0.90); Monocytes Percent Manual 9 % (3-9); Neutrophils Absolute Manual 2.44 K/mm3 (1.7-7.2); Neutrophils Percent Manual 68 % (46-73); Platelet Estimate Adequate (Adequate); Total Cells Counted 100
== END 2021-06-16 17:39 | disposition home or self-care (01) ==
LOC: CHSLAB 17:44
DX: K65.1 Peritoneal abscess (principal); T81.49XA Infection following a procedure, other surgical site, initial encounter
CPT/HCPCS: 36415; 80053; 83735; 84100; 85025

== ENCOUNTER 2021-06-29 16:47 | Outpatient (NON) | payer MEDICAID, SELFPAY ==
[2021-06-29 18:58] LABS: Basophils Absolute Auto 0.01 K/mm3 (0.00-0.10); Basophils Percent Auto 0.2 % (0.0-1.0); Eosinophils Percent Auto 1.6 % (1.0-6.0); Hematocrit 33.6 % (35.0-42.0); Hemoglobin 10.1 g/dL (11.7-13.8); Immature Granulocyte Absolute 0.01 K/mm3 (0.00-0.00); Immature Granulocyte Percent A 0.2 % (0.0-0.0); Lymphocytes Absolute Auto 1.14 K/mm3 (1.10-4.50); Lymphocytes Percent Auto 18.6 % (18.0-42.0); Mean Corpuscular HGB Conc 30.1 g/dL (32.0-36.0); Mean Corpuscular Hemoglobin 24.5 pg (27.0-31.0); Mean Corpuscular Volume 81.6 fL (78.0-102.0); Mean Platelet Volume 9.5 fl (9.2-11.8); Monocytes Absolute Auto 0.42 K/mm3 (0.10-0.90); Monocytes Percent Auto 6.9 % (2.0-11.0); Neutrophils Absolute Auto 4.4 K/mm3 (1.7-7.2); Neutrophils Percent Auto 72.5 % (50.0-70.0); Platelet Count Result 389 K/mm3 (150-420); Red Blood Count 4.12 M/mm3 (4.20-5.40); Red Cell Distribution Width 14.7 % (11.6-14.4); White Blood Count 6.1 K/mm3 (4.8-10.8)
[2021-06-29 19:02] LABS: Alanine Aminotransferase 13 U/L (14-59); Albumin Level 2.9 g/dL (3.4-5.0); Alkaline Phosphatase 144 U/L (46-116); Anion Gap 11 mmol/L (8-16); Aspartate Amino Transferase 10 U/L (15-37); Bilirubin,Total 0.3 mg/dL (0.00-1.00); Blood Urea Nitrogen 12 mg/dL (7-18); Calcium 8.7 mg/dL (8.5-10.1); Carbon Dioxide 27 mmol/L (21-32); Chloride 101 mmol/L (98-108); Estimated Glomerular Filt Rate > 60; Glucose 72 mg/dL (70-99); Magnesium 1.8 mg/dL (1.8-2.4); Osmolality Calculated 286 mOsm/kg (285-295); Phosphorus 4.2 mg/dL (2.6-4.7); Sodium 139 mmol/L (136-145); Total Protein 7.4 g/dL (6.4-8.2)
== END 2021-06-29 16:48 | disposition home or self-care (01) ==
LOC: CHSLAB 16:53
DX: K65.1 Peritoneal abscess (principal); T81.49XA Infection following a procedure, other surgical site, initial encounter
CPT/HCPCS: 36415; 80053; 83735; 84100; 85025

== ENCOUNTER 2021-07-07 14:16 | Outpatient (NON) | payer MEDICAID, SELFPAY ==
[2021-07-07 14:36] LABS: Basophils Absolute Auto 0.01 K/mm3 (0.00-0.10); Basophils Percent Auto 0.2 % (0.0-1.0); Eosinophils Absolute Auto 0.08 K/mm3 (0.02-0.50); Eosinophils Percent Auto 1.4 % (1.0-6.0); Immature Granulocyte Absolute 0.01 K/mm3 (0.00-0.00); Immature Granulocyte Percent A 0.2 % (0.0-0.0); Lymphocytes Percent Auto 21.5 % (18.0-42.0); Mean Corpuscular HGB Conc 30.5 g/dL (32.0-36.0); Mean Corpuscular Hemoglobin 24.6 pg (27.0-31.0); Mean Corpuscular Volume 80.8 fL (78.0-102.0); Mean Platelet Volume 9.8 fl (9.2-11.8); Monocytes Absolute Auto 0.51 K/mm3 (0.10-0.90); Monocytes Percent Auto 9.1 % (2.0-11.0); Neutrophils Absolute Auto 3.8 K/mm3 (1.7-7.2); Neutrophils Percent Auto 67.6 % (50.0-70.0); Platelet Count Result 418 K/mm3 (150-420); Red Cell Distribution Width 15.1 % (11.6-14.4); White Blood Count 5.6 K/mm3 (4.8-10.8)
[2021-07-07 14:53] LABS: Alanine Aminotransferase 10 U/L (14-59); Albumin Level 2.5 g/dL (3.4-5.0); Alkaline Phosphatase 116 U/L (46-116); Anion Gap 9 mmol/L (8-16); Aspartate Amino Transferase 14 U/L (15-37); Bilirubin,Total 0.3 mg/dL (0.00-1.00); Blood Urea Nitrogen 11 mg/dL (7-18); Calcium 8.4 mg/dL (8.5-10.1); Carbon Dioxide 27 mmol/L (21-32); Chloride 104 mmol/L (98-108); Estimated Glomerular Filt Rate > 60; Glucose 86 mg/dL (70-99); Hemoglobin 6.4 g/dL (11.7-13.8); Magnesium 1.7 mg/dL (1.8-2.4); Osmolality Calculated 288 mOsm/kg (285-295); Phosphorus 4.4 mg/dL (2.6-4.7); Potassium 3.9 mmol/L (3.5-5.1); Sodium 140 mmol/L (136-145); Total Protein 6.9 g/dL (6.4-8.2)
== END 2021-07-07 14:17 | disposition home or self-care (01) ==
LOC: CHSLAB 14:25
DX: K65.1 Peritoneal abscess (principal); T81.31XA Disruption of external operation (surgical) wound, not elsewhere classified, initial encounter
CPT/HCPCS: 80053; 83735; 84100; 85025

== ENCOUNTER 2021-07-13 14:14 | Outpatient (NON) | payer MEDICAID, SELFPAY ==
[2021-07-13 14:33] LABS: Basophils Absolute Auto 0.02 K/mm3 (0.00-0.10); Basophils Percent Auto 0.4 % (0.0-1.0); Eosinophils Percent Auto 1.8 % (1.0-6.0); Hematocrit 33.6 % (35.0-42.0); Hemoglobin 10.2 g/dL (11.7-13.8); Immature Granulocyte Absolute 0.02 K/mm3 (0.00-0.00); Immature Granulocyte Percent A 0.4 % (0.0-0.0); Lymphocytes Absolute Auto 1.48 K/mm3 (1.10-4.50); Lymphocytes Percent Auto 27.2 % (18.0-42.0); Mean Corpuscular HGB Conc 30.4 g/dL (32.0-36.0); Mean Corpuscular Hemoglobin 24.1 pg (27.0-31.0); Mean Corpuscular Volume 79.4 fL (78.0-102.0); Mean Platelet Volume 9.3 fl (9.2-11.8); Monocytes Absolute Auto 0.38 K/mm3 (0.10-0.90); Neutrophils Absolute Auto 3.4 K/mm3 (1.7-7.2); Neutrophils Percent Auto 63.2 % (50.0-70.0); Platelet Count Result 470 K/mm3 (150-420); Red Blood Count 4.23 M/mm3 (4.20-5.40); White Blood Count 5.4 K/mm3 (4.8-10.8)
[2021-07-13 14:49] LABS: Alanine Aminotransferase 30 U/L (14-59); Albumin Level 2.9 g/dL (3.4-5.0); Alkaline Phosphatase 142 U/L (46-116); Anion Gap 11 mmol/L (8-16); Aspartate Amino Transferase 39 U/L (15-37); Bilirubin,Total 0.2 mg/dL (0.00-1.00); Blood Urea Nitrogen 32 mg/dL (7-18); Carbon Dioxide 25 mmol/L (21-32); Chloride 101 mmol/L (98-108); Estimated Glomerular Filt Rate > 60; Glucose 102 mg/dL (70-99); Magnesium 2.5 mg/dL (1.8-2.4); Osmolality Calculated 290 mOsm/kg (285-295); Phosphorus 4.9 mg/dL (2.6-4.7); Potassium 5.1 mmol/L (3.5-5.1); Sodium 137 mmol/L (136-145); Total Protein 7.8 g/dL (6.4-8.2)
== END 2021-07-13 14:15 | disposition home or self-care (01) ==
DX: K65.1 Peritoneal abscess (principal); T81.49XA Infection following a procedure, other surgical site, initial encounter
CPT/HCPCS: 80053; 83735; 84100; 85025

== ENCOUNTER 2021-07-20 15:39 | Outpatient (NON) | payer MEDICAID, SELFPAY ==
[2021-07-20 16:08] LABS: Basophils Absolute Auto 0.03 K/mm3 (0.00-0.10); Basophils Percent Auto 0.7 % (0.0-1.0); Eosinophils Absolute Auto 0.17 K/mm3 (0.02-0.50); Eosinophils Percent Auto 4.1 % (1.0-6.0); Hematocrit 34.4 % (35.0-42.0); Hemoglobin 10.3 g/dL (11.7-13.8); Immature Granulocyte Absolute 0.02 K/mm3 (0.00-0.00); Immature Granulocyte Percent A 0.5 % (0.0-0.0); Lymphocytes Absolute Auto 1.16 K/mm3 (1.10-4.50); Lymphocytes Percent Auto 27.8 % (18.0-42.0); Mean Corpuscular HGB Conc 29.9 g/dL (32.0-36.0); Mean Corpuscular Hemoglobin 23.9 pg (27.0-31.0); Mean Corpuscular Volume 79.8 fL (78.0-102.0); Monocytes Absolute Auto 0.29 K/mm3 (0.10-0.90); Neutrophils Absolute Auto 2.5 K/mm3 (1.7-7.2); Neutrophils Percent Auto 59.9 % (50.0-70.0); Platelet Count Result 381 K/mm3 (150-420); Red Blood Count 4.31 M/mm3 (4.20-5.40); Red Cell Distribution Width 16.1 % (11.6-14.4); White Blood Count 4.2 K/mm3 (4.8-10.8)
[2021-07-20 16:17] LABS: Alanine Aminotransferase 40 U/L (14-59); Albumin Level 2.9 g/dL (3.4-5.0); Alkaline Phosphatase 150 U/L (46-116); Anion Gap 11 mmol/L (8-16); Aspartate Amino Transferase 27 U/L (15-37); Bilirubin,Total 0.2 mg/dL (0.00-1.00); Blood Urea Nitrogen 31 mg/dL (7-18); Carbon Dioxide 26 mmol/L (21-32); Chloride 102 mmol/L (98-108); Estimated Glomerular Filt Rate > 60; Glucose 104 mg/dL (70-99); Magnesium 2.3 mg/dL (1.8-2.4); Osmolality Calculated 294 mOsm/kg (285-295); Phosphorus 4.8 mg/dL (2.6-4.7); Potassium 4.2 mmol/L (3.5-5.1); Sodium 139 mmol/L (136-145); Total Protein 7.5 g/dL (6.4-8.2)
== END 2021-07-20 15:40 | disposition home or self-care (01) ==
LOC: CHSLAB 15:46
DX: K65.1 Peritoneal abscess (principal); T81.49XA Infection following a procedure, other surgical site, initial encounter
CPT/HCPCS: 80053; 83735; 84100; 85025

== ENCOUNTER 2021-07-27 16:24 | Outpatient (NON) | payer MEDICAID, SELFPAY ==
[2021-07-27 17:12] LABS: Hematocrit 35.7 % (35.0-42.0); Hemoglobin 10.7 g/dL (11.7-13.8); Mean Platelet Volume 10.5 fl (9.2-11.8); Platelet Count Result 269 K/mm3 (150-420); Red Blood Count 4.46 M/mm3 (4.20-5.40); White Blood Count 3.4 K/mm3 (4.8-10.8)
[2021-07-27 17:29] LABS: Alanine Aminotransferase 26 U/L (14-59); Albumin Level 3.1 g/dL (3.4-5.0); Alkaline Phosphatase 151 U/L (46-116); Anion Gap 10 mmol/L (8-16); Aspartate Amino Transferase 19 U/L (15-37); Bilirubin,Total 0.3 mg/dL (0.00-1.00); Blood Urea Nitrogen 30 mg/dL (7-18); Calcium 8.9 mg/dL (8.5-10.1); Carbon Dioxide 26 mmol/L (21-32); Chloride 106 mmol/L (98-108); Estimated Glomerular Filt Rate > 60; Glucose 73 mg/dL (70-99); Magnesium 2.1 mg/dL (1.8-2.4); Osmolality Calculated 299 mOsm/kg (285-295); Phosphorus 4.5 mg/dL (2.6-4.7); Potassium 4.1 mmol/L (3.5-5.1); Sodium 142 mmol/L (136-145); Total Protein 7.7 g/dL (6.4-8.2)
[2021-07-27 18:42] LABS: Band Neutrophils Percent 0 % (0-6); Basophils Absolute Manual 0.06 K/mm3 (0-0.1); Basophils Percent Manual 2 % (0-1); Eosinophils Absolute Manual 0.23 K/mm3 (0.02-0.5); Eosinophils Percent Manual 7 % (1-6); Lymphocytes Absolute Manual 0.85 K/mm3 (1.1-4.5); Lymphocytes Percent Manual 25 % (18-44); Monocytes Absolute Manual 0.27 K/mm3 (0.1-0.90); Monocytes Percent Manual 8 % (3-9); Neutrophils Absolute Manual 1.97 K/mm3 (1.7-7.2); Neutrophils Percent Manual 58 % (46-73); Platelet Estimate Adequate (Adequate)
== END 2021-07-27 16:25 | disposition home or self-care (01) ==
LOC: CHSLAB 16:27
PROVIDERS: Visit Provider Nurse Practitioner Family
DX: K65.1 Peritoneal abscess (principal); T81.49XA Infection following a procedure, other surgical site, initial encounter
CPT/HCPCS: 36415; 80053; 83735; 84100; 85025

== ENCOUNTER 2021-08-03 15:40 | Outpatient (NON) | payer MEDICARE, SELFPAY ==
[2021-08-03 15:53] LABS: Hematocrit 33.5 % (35.0-42.0); Hemoglobin 10.1 g/dL (11.7-13.8); Mean Corpuscular HGB Conc 30.1 g/dL (32.0-36.0); Mean Corpuscular Volume 79.8 fL (78.0-102.0); Mean Platelet Volume 11.2 fl (9.2-11.8); Platelet Count Result 197 K/mm3 (150-420); Red Cell Distribution Width 18.1 % (11.6-14.4); White Blood Count 2.6 K/mm3 (4.8-10.8)
[2021-08-03 16:16] LABS: Alanine Aminotransferase 24 U/L (14-59); Albumin Level 3.1 g/dL (3.4-5.0); Alkaline Phosphatase 146 U/L (46-116); Anion Gap 9 mmol/L (8-16); Aspartate Amino Transferase 26 U/L (15-37); Bilirubin,Total 0.3 mg/dL (0.00-1.00); Blood Urea Nitrogen 21 mg/dL (7-18); Calcium 8.7 mg/dL (8.5-10.1); Carbon Dioxide 25 mmol/L (21-32); Chloride 105 mmol/L (98-108); Estimated Glomerular Filt Rate > 60; Glucose 126 mg/dL (70-99); Osmolality Calculated 293 mOsm/kg (285-295); Potassium 3.3 mmol/L (3.5-5.1); Sodium 139 mmol/L (136-145); Total Protein 7.4 g/dL (6.4-8.2)
[2021-08-03 16:45] LABS: Band Neutrophils Percent 0 % (0-6); Basophils Percent Manual 0 % (0-1); Eosinophils Absolute Manual 0.05 K/mm3 (0.02-0.5); Eosinophils Percent Manual 2 % (1-6); Lymphocytes Absolute Manual 0.96 K/mm3 (1.1-4.5); Lymphocytes Percent Manual 37 % (18-44); Monocytes Absolute Manual 0.18 K/mm3 (0.1-0.90); Monocytes Percent Manual 7 % (3-9); Neutrophils Percent Manual 54 % (46-73); Platelet Estimate Adequate (Adequate); Total Cells Counted 100
== END 2021-08-03 15:41 | disposition home or self-care (01) ==
LOC: CHSLAB 15:45
DX: K65.1 Peritoneal abscess (principal); T81.31XA Disruption of external operation (surgical) wound, not elsewhere classified, initial encounter; T81.49XA Infection following a procedure, other surgical site, initial encounter
CPT/HCPCS: 36415; 80053; 83735; 84100; 85025

== ENCOUNTER 2021-08-10 12:47 | Outpatient (NON) | payer MEDICARE, SELFPAY ==
[2021-08-10 13:15] LABS: Hematocrit 36.4 % (35.0-42.0); Hemoglobin 11.1 g/dL (11.7-13.8); Immature Platelet Fraction Pct 4.2 % (1.0-7.0); Mean Corpuscular HGB Conc 30.5 g/dL (32.0-36.0); Mean Corpuscular Volume 78.6 fL (78.0-102.0); Mean Platelet Volume 11.6 fl (9.2-11.8); Platelet Count Result 173 K/mm3 (150-420); Red Blood Count 4.63 M/mm3 (4.20-5.40); Red Cell Distribution Width 18.5 % (11.6-14.4); White Blood Count 3.5 K/mm3 (4.8-10.8)
[2021-08-10 13:27] LABS: Alanine Aminotransferase 40 U/L (14-59); Albumin Level 3.1 g/dL (3.4-5.0); Alkaline Phosphatase 155 U/L (46-116); Anion Gap 8 mmol/L (8-16); Aspartate Amino Transferase 35 U/L (15-37); Bilirubin,Total 0.4 mg/dL (0.00-1.00); Blood Urea Nitrogen 30 mg/dL (7-18); Calcium 8.7 mg/dL (8.5-10.1); Carbon Dioxide 26 mmol/L (21-32); Chloride 102 mmol/L (98-108); Estimated Glomerular Filt Rate > 60; Glucose 91 mg/dL (70-99); Magnesium 2.2 mg/dL (1.8-2.4); Osmolality Calculated 288 mOsm/kg (285-295); Phosphorus 4.2 mg/dL (2.6-4.7); Potassium 4.1 mmol/L (3.5-5.1); Sodium 136 mmol/L (136-145); Total Protein 7.5 g/dL (6.4-8.2)
[2021-08-10 13:36] LABS: Band Neutrophils Percent 0 % (0-6); Lymphocytes Absolute Manual 1.19 K/mm3 (1.1-4.5); Lymphocytes Percent Manual 34 % (18-44); Monocytes Absolute Manual 0.21 K/mm3 (0.1-0.90); Monocytes Percent Manual 6 % (3-9); Neutrophils Absolute Manual 2.06 K/mm3 (1.7-7.2); Neutrophils Percent Manual 59 % (46-73); Total Cells Counted 100
[2021-08-10 13:37] LABS: Eosinophils Absolute Manual 0.03 K/mm3 (0.02-0.5); Eosinophils Percent Manual 1 % (1-6); Platelet Estimate Adequate (Adequate)
== END 2021-08-10 12:48 | disposition home or self-care (01) ==
LOC: CHSLAB 12:59
DX: T81.49XA Infection following a procedure, other surgical site, initial encounter (principal); T81.31XA Disruption of external operation (surgical) wound, not elsewhere classified, initial encounter
CPT/HCPCS: 36415; 80053; 83735; 84100; 85025; 85055

== ENCOUNTER 2021-08-17 14:45 | Outpatient (NON) | payer MEDICARE, SELFPAY ==
[2021-08-17 15:16] LABS: Hematocrit 33.6 % (35.0-42.0); Hemoglobin 10.3 g/dL (11.7-13.8); Mean Corpuscular HGB Conc 30.7 g/dL (32.0-36.0); Mean Corpuscular Hemoglobin 24.4 pg (27.0-31.0); Mean Corpuscular Volume 79.6 fL (78.0-102.0); Mean Platelet Volume 11.3 fl (9.2-11.8); Platelet Count Result 202 K/mm3 (150-420); Red Blood Count 4.22 M/mm3 (4.20-5.40); Red Cell Distribution Width 19.5 % (11.6-14.4); White Blood Count 3.4 K/mm3 (4.8-10.8)
[2021-08-17 15:25] LABS: Alanine Aminotransferase 18 U/L (14-59); Albumin Level 2.9 g/dL (3.4-5.0); Alkaline Phosphatase 154 U/L (46-116); Anion Gap 9 mmol/L (8-16); Aspartate Amino Transferase 15 U/L (15-37); Bilirubin,Total 0.3 mg/dL (0.00-1.00); Blood Urea Nitrogen 31 mg/dL (7-18); Calcium 8.3 mg/dL (8.5-10.1); Carbon Dioxide 26 mmol/L (21-32); Chloride 107 mmol/L (98-108); Estimated Glomerular Filt Rate > 60; Glucose 84 mg/dL (70-99); Magnesium 2.3 mg/dL (1.8-2.4); Osmolality Calculated 299 mOsm/kg (285-295); Phosphorus 4.6 mg/dL (2.6-4.7); Potassium 4.3 mmol/L (3.5-5.1); Sodium 142 mmol/L (136-145)
[2021-08-17 15:59] LABS: Band Neutrophils Percent 0 % (0-6); Basophils Absolute Manual 0.06 K/mm3 (0-0.1); Basophils Percent Manual 2 % (0-1); Eosinophils Absolute Manual 0.17 K/mm3 (0.02-0.5); Eosinophils Percent Manual 5 % (1-6); Neutrophils Absolute Manual 2.07 K/mm3 (1.7-7.2); Neutrophils Percent Manual 61 % (46-73); Total Cells Counted 100
[2021-08-17 16:00] LABS: Lymphocytes Absolute Manual 0.78 K/mm3 (1.1-4.5); Lymphocytes Percent Manual 23 % (18-44); Monocytes Percent Manual 9 % (3-9); Platelet Estimate Adequate (Adequate)
== END 2021-08-17 14:46 | disposition home or self-care (01) ==
LOC: CHSLAB 14:47
PROVIDERS: Visit Provider Nurse Practitioner Family
DX: K65.1 Peritoneal abscess (principal); T81.49XA Infection following a procedure, other surgical site, initial encounter
CPT/HCPCS: 36415; 80053; 83735; 84100; 85025

== ENCOUNTER 2021-08-25 18:10 | Outpatient (NON) | payer MEDICARE, SELFPAY ==
[2021-08-25 18:36] LABS: Hematocrit 29.6 % (35.0-42.0); Hemoglobin 9.2 g/dL (11.7-13.8); Mean Corpuscular HGB Conc 31.1 g/dL (32.0-36.0); Mean Corpuscular Hemoglobin 24.4 pg (27.0-31.0); Mean Corpuscular Volume 78.5 fL (78.0-102.0); Mean Platelet Volume 11.1 fl (9.2-11.8); Platelet Count Result 166 K/mm3 (150-420); Red Blood Count 3.77 M/mm3 (4.20-5.40); Red Cell Distribution Width 19.9 % (11.6-14.4); White Blood Count 3.1 K/mm3 (4.8-10.8)
[2021-08-25 18:57] LABS: Band Neutrophils Percent 0 % (0-6); Basophils Percent Manual 0 % (0-1); Eosinophils Percent Manual 0 % (1-6); Lymphocytes Absolute Manual 0.93 K/mm3 (1.1-4.5); Lymphocytes Percent Manual 30 % (18-44); Monocytes Absolute Manual 0.31 K/mm3 (0.1-0.90); Monocytes Percent Manual 10 % (3-9); Neutrophils Absolute Manual 1.86 K/mm3 (1.7-7.2); Neutrophils Percent Manual 60 % (46-73); Total Cells Counted 100
[2021-08-25 18:58] LABS: Platelet Estimate Adequate (Adequate)
[2021-08-25 19:01] LABS: Alanine Aminotransferase 35 U/L (14-59); Albumin Level 2.5 g/dL (3.4-5.0); Alkaline Phosphatase 137 U/L (46-116); Anion Gap 9 mmol/L (8-16); Aspartate Amino Transferase 33 U/L (15-37); Bilirubin,Total 0.3 mg/dL (0.00-1.00); Blood Urea Nitrogen 24 mg/dL (7-18); Calcium 7.9 mg/dL (8.5-10.1); Carbon Dioxide 25 mmol/L (21-32); Chloride 101 mmol/L (98-108); Estimated Glomerular Filt Rate > 60; Glucose 77 mg/dL (70-99); Magnesium 2.2 mg/dL (1.8-2.4); Osmolality Calculated 283 mOsm/kg (285-295); Phosphorus 3.9 mg/dL (2.6-4.7); Potassium 4.7 mmol/L (3.5-5.1); Sodium 135 mmol/L (136-145); Total Protein 6.7 g/dL (6.4-8.2)
[2021-08-29 11:16] LABS: CA 19-9 6 U/mL (<34); Carcinoembryonic Antigen 4.3 ng/mL (0.0-2.4)
== END 2021-08-25 18:11 | disposition home or self-care (01) ==
LOC: CHSLAB 18:20
DX: K65.1 Peritoneal abscess (principal); T81.49XA Infection following a procedure, other surgical site, initial encounter; R97.8 Other abnormal tumor markers; Z85.118 Personal history of other malignant neoplasm of bronchus and lung
CPT/HCPCS: 36415; 80053; 82378; 83735; 84100; 85025; 86301

== ENCOUNTER 2021-09-08 15:21 | Outpatient (NON) | payer MEDICARE, SELFPAY ==
[2021-09-08 15:54] LABS: Hematocrit 32.1 % (35.0-42.0); Immature Platelet Fraction Pct 1.7 % (1.0-7.0); Mean Corpuscular HGB Conc 31.2 g/dL (32.0-36.0); Mean Corpuscular Hemoglobin 24.4 pg (27.0-31.0); Mean Corpuscular Volume 78.5 fL (78.0-102.0); Mean Platelet Volume 9.3 fl (9.2-11.8); Platelet Count Result 68 K/mm3 (150-420); Red Blood Count 4.09 M/mm3 (4.20-5.40); Red Cell Distribution Width 21.2 % (11.6-14.4); White Blood Count 3.3 K/mm3 (4.8-10.8)
[2021-09-08 16:00] LABS: Alanine Aminotransferase 35 U/L (14-59); Alkaline Phosphatase 171 U/L (46-116); Anion Gap 7 mmol/L (8-16); Aspartate Amino Transferase 37 U/L (15-37); Bilirubin,Total 0.2 mg/dL (0.00-1.00); Blood Urea Nitrogen 35 mg/dL (7-18); Calcium 8.9 mg/dL (8.5-10.1); Carbon Dioxide 26 mmol/L (21-32); Chloride 103 mmol/L (98-108); Estimated Glomerular Filt Rate > 60; Glucose 118 mg/dL (70-99); Magnesium 2.4 mg/dL (1.8-2.4); Osmolality Calculated 291 mOsm/kg (285-295); Phosphorus 4.2 mg/dL (2.6-4.7); Potassium 4.3 mmol/L (3.5-5.1); Sodium 136 mmol/L (136-145)
[2021-09-08 18:39] LABS: Band Neutrophils Percent 0 % (0-6); Basophils Absolute Manual 0.03 K/mm3 (0-0.1); Basophils Percent Manual 1 % (0-1); Eosinophils Percent Manual 0 % (1-6); Lymphocytes Absolute Manual 1.35 K/mm3 (1.1-4.5); Lymphocytes Percent Manual 41 % (18-44); Monocytes Absolute Manual 0.16 K/mm3 (0.1-0.90); Monocytes Percent Manual 5 % (3-9); Neutrophils Absolute Manual 1.74 K/mm3 (1.7-7.2); Neutrophils Percent Manual 53 % (46-73); Platelet Estimate Decreased (Adequate); Total Cells Counted 100
== END 2021-09-08 15:22 | disposition home or self-care (01) ==
LOC: CHSLAB 09-09 13:16
DX: K65.1 Peritoneal abscess (principal)
CPT/HCPCS: 36415; 80053; 83735; 84100; 85025; 85055

== ENCOUNTER 2021-09-22 15:17 | Outpatient (NON) | payer MEDICARE, SELFPAY ==
[2021-09-22 16:15] LABS: Hematocrit 34.1 % (35.0-42.0); Hemoglobin 10.5 g/dL (11.7-13.8); Mean Corpuscular HGB Conc 30.8 g/dL (32.0-36.0); Mean Corpuscular Hemoglobin 24.5 pg (27.0-31.0); Mean Corpuscular Volume 79.5 fL (78.0-102.0); Mean Platelet Volume 9.9 fl (9.2-11.8); Platelet Count Result 215 K/mm3 (150-420); Red Blood Count 4.29 M/mm3 (4.20-5.40); Red Cell Distribution Width 21.8 % (11.6-14.4); White Blood Count 4.3 K/mm3 (4.8-10.8)
[2021-09-22 16:28] LABS: Alanine Aminotransferase 38 U/L (14-59); Albumin Level 2.8 g/dL (3.4-5.0); Alkaline Phosphatase 154 U/L (46-116); Anion Gap 9 mmol/L (8-16); Aspartate Amino Transferase 29 U/L (15-37); Bilirubin,Total 0.5 mg/dL (0.00-1.00); Blood Urea Nitrogen 30 mg/dL (7-18); Calcium 8.5 mg/dL (8.5-10.1); Carbon Dioxide 25 mmol/L (21-32); Chloride 106 mmol/L (98-108); Estimated Glomerular Filt Rate > 60; Glucose 99 mg/dL (70-99); Magnesium 2.3 mg/dL (1.8-2.4); Osmolality Calculated 296 mOsm/kg (285-295); Potassium 4.3 mmol/L (3.5-5.1); Sodium 140 mmol/L (136-145); Total Protein 7.6 g/dL (6.4-8.2)
== END 2021-09-22 15:18 | disposition home or self-care (01) ==
DX: K65.1 Peritoneal abscess (principal); T81.49XA Infection following a procedure, other surgical site, initial encounter
CPT/HCPCS: 36415; 80053; 83735; 84100; 85027

== ENCOUNTER 2021-09-29 13:58 | Outpatient (NON) | payer MEDICARE, SELFPAY ==
[2021-09-29 14:15] LABS: Basophils Absolute Auto 0.01 K/mm3 (0.00-0.10); Basophils Percent Auto 0.2 % (0.0-1.0); Eosinophils Absolute Auto 0.06 K/mm3 (0.02-0.50); Eosinophils Percent Auto 1.3 % (1.0-6.0); Hematocrit 28.4 % (35.0-42.0); Hemoglobin 9.2 g/dL (11.7-13.8); Immature Granulocyte Absolute 0.02 K/mm3 (0.00-0.00); Immature Granulocyte Percent A 0.4 % (0.0-0.0); Lymphocytes Absolute Auto 0.68 K/mm3 (1.10-4.50); Mean Corpuscular HGB Conc 32.4 g/dL (32.0-36.0); Mean Corpuscular Hemoglobin 25.2 pg (27.0-31.0); Mean Corpuscular Volume 77.8 fL (78.0-102.0); Mean Platelet Volume 10.5 fl (9.2-11.8); Monocytes Absolute Auto 0.29 K/mm3 (0.10-0.90); Monocytes Percent Auto 6.4 % (2.0-11.0); Neutrophils Absolute Auto 3.5 K/mm3 (1.7-7.2); Neutrophils Percent Auto 76.7 % (50.0-70.0); Platelet Count Result 229 K/mm3 (150-420); Red Blood Count 3.65 M/mm3 (4.20-5.40); Red Cell Distribution Width 21.2 % (11.6-14.4); White Blood Count 4.5 K/mm3 (4.8-10.8)
[2021-09-29 14:43] LABS: Sodium 137 mmol/L (136-145)
[2021-09-29 14:44] LABS: Alanine Aminotransferase 33 U/L (14-59); Albumin Level 2.9 g/dL (3.4-5.0); Alkaline Phosphatase 159 U/L (46-116); Anion Gap 6 mmol/L (8-16); Aspartate Amino Transferase 22 U/L (15-37); Bilirubin,Total 0.6 mg/dL (0.00-1.00); Blood Urea Nitrogen 26 mg/dL (7-18); Calcium 8.2 mg/dL (8.5-10.1); Carbon Dioxide 27 mmol/L (21-32); Chloride 104 mmol/L (98-108); Estimated Glomerular Filt Rate > 60; Glucose 87 mg/dL (70-99); Magnesium 2.3 mg/dL (1.8-2.4); Osmolality Calculated 287 mOsm/kg (285-295); Potassium 4.1 mmol/L (3.5-5.1); Total Protein 7.3 g/dL (6.4-8.2)
== END 2021-09-29 13:59 | disposition home or self-care (01) ==
LOC: CHSLAB 14:02
DX: T81.31XA Disruption of external operation (surgical) wound, not elsewhere classified, initial encounter (principal)
CPT/HCPCS: 80053; 83735; 84100; 85025

== ENCOUNTER 2021-10-05 17:05 | Outpatient (NON) | payer MEDICARE, SELFPAY ==
[2021-10-05 17:45] LABS: Hematocrit 28.3 % (35.0-42.0); Hemoglobin 8.8 g/dL (11.7-13.8); Mean Corpuscular HGB Conc 31.1 g/dL (32.0-36.0); Mean Corpuscular Hemoglobin 25.3 pg (27.0-31.0); Mean Corpuscular Volume 81.3 fL (78.0-102.0); Mean Platelet Volume 10.3 fl (9.2-11.8); Platelet Count Result 239 K/mm3 (150-420); Red Blood Count 3.48 M/mm3 (4.20-5.40); Red Cell Distribution Width 21.1 % (11.6-14.4); White Blood Count 3.2 K/mm3 (4.8-10.8)
[2021-10-05 17:54] LABS: Alanine Aminotransferase 19 U/L (14-59); Albumin Level 2.8 g/dL (3.4-5.0); Alkaline Phosphatase 141 U/L (46-116); Anion Gap 8 mmol/L (8-16); Aspartate Amino Transferase 22 U/L (15-37); Bilirubin,Total 0.5 mg/dL (0.00-1.00); Blood Urea Nitrogen 30 mg/dL (7-18); Calcium 8.4 mg/dL (8.5-10.1); Carbon Dioxide 26 mmol/L (21-32); Chloride 106 mmol/L (98-108); Estimated Glomerular Filt Rate > 60; Glucose 104 mg/dL (70-99); Magnesium 2.3 mg/dL (1.8-2.4); Osmolality Calculated 296 mOsm/kg (285-295); Phosphorus 4.2 mg/dL (2.6-4.7); Potassium 3.9 mmol/L (3.5-5.1); Sodium 140 mmol/L (136-145); Total Protein 7.6 g/dL (6.4-8.2)
[2021-10-05 18:02] LABS: Band Neutrophils Percent 0 % (0-6); Basophils Percent Manual 0 % (0-1); Eosinophils Absolute Manual 0.06 K/mm3 (0.02-0.5); Eosinophils Percent Manual 2 % (1-6); Lymphocytes Absolute Manual 0.64 K/mm3 (1.1-4.5); Lymphocytes Percent Manual 20 % (18-44); Monocytes Absolute Manual 0.44 K/mm3 (0.1-0.90); Monocytes Percent Manual 14 % (3-9); Neutrophils Absolute Manual 2.04 K/mm3 (1.7-7.2); Neutrophils Percent Manual 64 % (46-73); Platelet Estimate Adequate (Adequate)
== END 2021-10-05 17:06 | disposition home or self-care (01) ==
LOC: CHSLAB 17:12
DX: T81.49XA Infection following a procedure, other surgical site, initial encounter (principal); K65.1 Peritoneal abscess
CPT/HCPCS: 36415; 80053; 83735; 84100; 85025

== ENCOUNTER 2021-10-13 15:29 | Outpatient (NON) | payer MEDICARE, SELFPAY ==
[2021-10-13 15:45] LABS: Hematocrit 26.1 % (35.0-42.0); Hemoglobin 8.3 g/dL (11.7-13.8); Mean Corpuscular HGB Conc 31.8 g/dL (32.0-36.0); Mean Corpuscular Hemoglobin 25.9 pg (27.0-31.0); Mean Corpuscular Volume 81.3 fL (78.0-102.0); Mean Platelet Volume 9.5 fl (9.2-11.8); Platelet Count Result 221 K/mm3 (150-420); Red Blood Count 3.21 M/mm3 (4.20-5.40); Red Cell Distribution Width 20.4 % (11.6-14.4); White Blood Count 3.7 K/mm3 (4.8-10.8)
[2021-10-13 15:53] LABS: Alanine Aminotransferase 51 U/L (14-59); Albumin Level 2.7 g/dL (3.4-5.0); Alkaline Phosphatase 155 U/L (46-116); Anion Gap 8 mmol/L (8-16); Aspartate Amino Transferase 52 U/L (15-37); Bilirubin,Total 0.5 mg/dL (0.00-1.00); Blood Urea Nitrogen 34 mg/dL (7-18); Calcium 8.4 mg/dL (8.5-10.1); Carbon Dioxide 26 mmol/L (21-32); Chloride 105 mmol/L (98-108); Estimated Glomerular Filt Rate > 60; Glucose 92 mg/dL (70-99); Magnesium 2.4 mg/dL (1.8-2.4); Osmolality Calculated 295 mOsm/kg (285-295); Sodium 139 mmol/L (136-145); Total Protein 7.7 g/dL (6.4-8.2)
[2021-10-13 16:09] LABS: Band Neutrophils Percent 1 % (0-6); Basophils Percent Manual 0 % (0-1); Eosinophils Absolute Manual 0.03 K/mm3 (0.02-0.5); Eosinophils Percent Manual 1 % (1-6); Lymphocytes Absolute Manual 0.99 K/mm3 (1.1-4.5); Lymphocytes Percent Manual 27 % (18-44); Monocytes Absolute Manual 0.18 K/mm3 (0.1-0.90); Monocytes Percent Manual 5 % (3-9); Neutrophils Absolute Manual 2.47 K/mm3 (1.7-7.2); Neutrophils Percent Manual 66 % (46-73); Platelet Estimate Adequate (Adequate); Total Cells Counted 100
== END 2021-10-13 15:30 | disposition home or self-care (01) ==
LOC: CHSLAB 15:32
DX: T81.49XA Infection following a procedure, other surgical site, initial encounter (principal); K65.1 Peritoneal abscess
CPT/HCPCS: 36415; 80053; 83735; 84100; 85025

== ENCOUNTER 2021-10-19 19:42 | Outpatient (NON) | payer MEDICARE, SELFPAY ==
[2021-10-19 20:01] LABS: Hematocrit 25.1 % (35.0-42.0); Mean Corpuscular HGB Conc 31.9 g/dL (32.0-36.0); Mean Corpuscular Hemoglobin 26.4 pg (27.0-31.0); Mean Corpuscular Volume 82.8 fL (78.0-102.0); Platelet Count Result 199 K/mm3 (150-420); Red Blood Count 3.03 M/mm3 (4.20-5.40); Red Cell Distribution Width 19.5 % (11.6-14.4); White Blood Count 3.8 K/mm3 (4.8-10.8)
[2021-10-19 20:13] LABS: Alanine Aminotransferase 28 U/L (14-59); Albumin Level 2.7 g/dL (3.4-5.0); Alkaline Phosphatase 147 U/L (46-116); Anion Gap 8 mmol/L (8-16); Aspartate Amino Transferase 14 U/L (15-37); Bilirubin,Total 0.3 mg/dL (0.00-1.00); Blood Urea Nitrogen 33 mg/dL (7-18); Calcium 8.4 mg/dL (8.5-10.1); Carbon Dioxide 25 mmol/L (21-32); Chloride 105 mmol/L (98-108); Estimated Glomerular Filt Rate > 60; Glucose 71 mg/dL (70-99); Magnesium 2.3 mg/dL (1.8-2.4); Osmolality Calculated 291 mOsm/kg (285-295); Potassium 3.8 mmol/L (3.5-5.1); Sodium 138 mmol/L (136-145); Total Protein 7.6 g/dL (6.4-8.2)
[2021-10-19 20:18] LABS: Band Neutrophils Percent 0 % (0-6); Basophils Percent Manual 0 % (0-1); Eosinophils Absolute Manual 0.03 K/mm3 (0.02-0.5); Eosinophils Percent Manual 1 % (1-6); Lymphocytes Absolute Manual 0.76 K/mm3 (1.1-4.5); Lymphocytes Percent Manual 20 % (18-44); Monocytes Absolute Manual 0.49 K/mm3 (0.1-0.90); Monocytes Percent Manual 13 % (3-9); Neutrophils Percent Manual 66 % (46-73); Platelet Estimate Adequate (Adequate)
== END 2021-10-19 19:43 | disposition home or self-care (01) ==
LOC: CHSLAB 19:47
DX: T81.31XA Disruption of external operation (surgical) wound, not elsewhere classified, initial encounter (principal)
CPT/HCPCS: 36415; 80053; 83735; 84100; 85025

== ENCOUNTER 2021-11-02 11:17 | Outpatient (NON) | payer MEDICARE, SELFPAY ==
[2021-11-02 11:33] LABS: Basophils Absolute Auto 0.01 K/mm3 (0.00-0.10); Basophils Percent Auto 0.2 % (0.0-1.0); Eosinophils Absolute Auto 0.09 K/mm3 (0.02-0.50); Eosinophils Percent Auto 2.1 % (1.0-6.0); Hematocrit 26.5 % (35.0-42.0); Hemoglobin 8.3 g/dL (11.7-13.8); Immature Granulocyte Absolute 0.02 K/mm3 (0.00-0.00); Immature Granulocyte Percent A 0.5 % (0.0-0.0); Lymphocytes Percent Auto 16.1 % (18.0-42.0); Mean Corpuscular HGB Conc 31.3 g/dL (32.0-36.0); Mean Corpuscular Hemoglobin 25.9 pg (27.0-31.0); Mean Corpuscular Volume 82.6 fL (78.0-102.0); Mean Platelet Volume 10.4 fl (9.2-11.8); Monocytes Absolute Auto 0.39 K/mm3 (0.10-0.90); Neutrophils Absolute Auto 3.1 K/mm3 (1.7-7.2); Neutrophils Percent Auto 72.1 % (50.0-70.0); Platelet Count Result 208 K/mm3 (150-420); Red Blood Count 3.21 M/mm3 (4.20-5.40); Red Cell Distribution Width 17.7 % (11.6-14.4); White Blood Count 4.4 K/mm3 (4.8-10.8)
[2021-11-02 11:47] LABS: Partial Thromboplastin Time 28.5 SEC (23.90-30.70); Prothrombin Time 11.2 Seconds (9.50-12.10)
[2021-11-02 11:48] LABS: Alanine Aminotransferase 20 U/L (14-59); Albumin Level 2.2 g/dL (3.4-5.0); Alkaline Phosphatase 117 U/L (46-116); Anion Gap 8 mmol/L (8-16); Aspartate Amino Transferase 14 U/L (15-37); Bilirubin,Total 0.3 mg/dL (0.00-1.00); Blood Urea Nitrogen 29 mg/dL (7-18); Calcium 8.1 mg/dL (8.5-10.1); Carbon Dioxide 24 mmol/L (21-32); Chloride 106 mmol/L (98-108); Estimated Glomerular Filt Rate > 60; Glucose 84 mg/dL (70-99); Osmolality Calculated 290 mOsm/kg (285-295); Potassium 4.1 mmol/L (3.5-5.1); Sodium 138 mmol/L (136-145); Total Protein 6.8 g/dL (6.4-8.2)
[2021-11-02 15:21] LABS: Magnesium 2.4 mg/dL (1.8-2.4); Phosphorus 3.3 mg/dL (2.6-4.7)
== END 2021-11-02 11:18 | disposition home or self-care (01) ==
LOC: CHSLAB 11:19
DX: C24.1 Malignant neoplasm of ampulla of Vater (principal); C22.0 Liver cell carcinoma; C16.4 Malignant neoplasm of pylorus; C25.9 Malignant neoplasm of pancreas, unspecified
CPT/HCPCS: 36415; 80053; 83735; 84100; 85025; 85610; 85730

== ENCOUNTER 2021-11-09 15:43 | Outpatient (NON) | payer MEDICARE, SELFPAY ==
[2021-11-09 15:58] LABS: Hematocrit 23.9 % (35.0-42.0); Hemoglobin 7.5 g/dL (11.7-13.8); Mean Corpuscular HGB Conc 31.4 g/dL (32.0-36.0); Mean Corpuscular Hemoglobin 25.7 pg (27.0-31.0); Mean Corpuscular Volume 81.8 fL (78.0-102.0); Mean Platelet Volume 9.7 fl (9.2-11.8); Platelet Count Result 242 K/mm3 (150-420); Red Blood Count 2.92 M/mm3 (4.20-5.40); Red Cell Distribution Width 17.3 % (11.6-14.4); White Blood Count 3.5 K/mm3 (4.8-10.8)
[2021-11-09 16:13] LABS: Alanine Aminotransferase 34 U/L (14-59); Albumin Level 2.4 g/dL (3.4-5.0); Alkaline Phosphatase 138 U/L (46-116); Anion Gap 9 mmol/L (8-16); Aspartate Amino Transferase 24 U/L (15-37); Bilirubin,Total 0.2 mg/dL (0.00-1.00); Blood Urea Nitrogen 26 mg/dL (7-18); Calcium 8.4 mg/dL (8.5-10.1); Carbon Dioxide 25 mmol/L (21-32); Chloride 105 mmol/L (98-108); Estimated Glomerular Filt Rate > 60; Glucose 88 mg/dL (70-99); Magnesium 2.1 mg/dL (1.8-2.4); Osmolality Calculated 291 mOsm/kg (285-295); Partial Thromboplastin Time 31.6 SEC (23.90-30.70); Phosphorus 3.7 mg/dL (2.6-4.7); Potassium 4.4 mmol/L (3.5-5.1); Prothrombin Time 11.2 Seconds (9.50-12.10); Sodium 139 mmol/L (136-145); Total Protein 7.2 g/dL (6.4-8.2)
[2021-11-09 16:31] LABS: Band Neutrophils Percent 0 % (0-6); Basophils Percent Manual 0 % (0-1); Eosinophils Absolute Manual 0.07 K/mm3 (0.02-0.5); Eosinophils Percent Manual 2 % (1-6); Lymphocytes Absolute Manual 1.01 K/mm3 (1.1-4.5); Lymphocytes Percent Manual 29 % (18-44); Monocytes Absolute Manual 0.14 K/mm3 (0.1-0.90); Monocytes Percent Manual 4 % (3-9); Neutrophils Absolute Manual 2.27 K/mm3 (1.7-7.2); Neutrophils Percent Manual 65 % (46-73); Total Cells Counted 100
[2021-11-09 16:32] LABS: Platelet Estimate Adequate (Adequate)
== END 2021-11-09 15:44 | disposition home or self-care (01) ==
DX: C22.8 Malignant neoplasm of liver, primary, unspecified as to type (principal); K65.1 Peritoneal abscess
CPT/HCPCS: 36415; 80053; 83735; 84100; 85025; 85610; 85730

== ENCOUNTER 2021-11-16 15:02 | Outpatient (NON) | payer MEDICARE, SELFPAY ==
[2021-11-16 15:39] LABS: Hematocrit 22.9 % (35.0-42.0); Hemoglobin 7.2 g/dL (11.7-13.8); Mean Corpuscular HGB Conc 31.4 g/dL (32.0-36.0); Mean Corpuscular Hemoglobin 25.7 pg (27.0-31.0); Mean Corpuscular Volume 81.8 fL (78.0-102.0); Mean Platelet Volume 10.2 fl (9.2-11.8); Platelet Count Result 149 K/mm3 (150-420); Red Cell Distribution Width 17.3 % (11.6-14.4)
[2021-11-16 16:01] LABS: Alanine Aminotransferase 23 U/L (14-59); Albumin Level 2.5 g/dL (3.4-5.0); Alkaline Phosphatase 134 U/L (46-116); Anion Gap 8 mmol/L (8-16); Aspartate Amino Transferase 19 U/L (15-37); Bilirubin,Total 0.3 mg/dL (0.00-1.00); Blood Urea Nitrogen 25 mg/dL (7-18); Calcium 8.2 mg/dL (8.5-10.1); Carbon Dioxide 26 mmol/L (21-32); Chloride 105 mmol/L (98-108); Estimated Glomerular Filt Rate > 60; Glucose 97 mg/dL (70-99); Magnesium 2.2 mg/dL (1.8-2.4); Osmolality Calculated 292 mOsm/kg (285-295); Phosphorus 3.3 mg/dL (2.6-4.7); Potassium 4.1 mmol/L (3.5-5.1); Sodium 139 mmol/L (136-145); Total Protein 7.3 g/dL (6.4-8.2)
[2021-11-16 16:39] LABS: Band Neutrophils Percent 0 % (0-6); Basophils Percent Manual 0 % (0-1); Eosinophils Absolute Manual 0.06 K/mm3 (0.02-0.5); Eosinophils Percent Manual 2 % (1-6); Lymphocytes Absolute Manual 0.84 K/mm3 (1.1-4.5); Lymphocytes Percent Manual 28 % (18-44); Monocytes Absolute Manual 0.12 K/mm3 (0.1-0.90); Monocytes Percent Manual 4 % (3-9); Neutrophils Absolute Manual 1.98 K/mm3 (1.7-7.2); Neutrophils Percent Manual 66 % (46-73); Platelet Estimate Adequate (Adequate); Total Cells Counted 100
[2021-11-18 22:29] LABS: Vitamin D 25 Hydroxy 59 ng/mL (30-100)
== END 2021-11-16 15:03 | disposition home or self-care (01) ==
LOC: CHSLAB 15:06
DX: T81.31XA Disruption of external operation (surgical) wound, not elsewhere classified, initial encounter (principal); K65.1 Peritoneal abscess; C22.8 Malignant neoplasm of liver, primary, unspecified as to type; Z79.899 Other long term (current) drug therapy
CPT/HCPCS: 36415; 80053; 82306; 83735; 84100; 85025

== ENCOUNTER 2022-02-18 16:44 | Outpatient (NON) | payer MEDICARE, SELFPAY ==
[2022-02-18 17:02] LABS: Hematocrit 27.6 % (35.0-42.0); Hemoglobin 8.7 g/dL (11.7-13.8); Immature Platelet Fraction Pct 2.9 % (1.0-7.0); Mean Corpuscular HGB Conc 31.5 g/dL (32.0-36.0); Mean Corpuscular Hemoglobin 25.4 pg (27.0-31.0); Mean Corpuscular Volume 80.5 fL (78.0-102.0); Platelet Count Result 79 K/mm3 (150-420); Red Blood Count 3.43 M/mm3 (4.20-5.40); Red Cell Distribution Width 24.3 % (11.6-14.4); White Blood Count 3.5 K/mm3 (4.8-10.8)
[2022-02-18 17:10] LABS: Alanine Aminotransferase 23 U/L (14-59); Albumin Level 2.4 g/dL (3.4-5.0); Alkaline Phosphatase 266 U/L (46-116); Anion Gap 7 mmol/L (8-16); Aspartate Amino Transferase 23 U/L (15-37); Bilirubin,Total 0.7 mg/dL (0.00-1.00); Blood Urea Nitrogen 13 mg/dL (7-18); Calcium 8.2 mg/dL (8.5-10.1); Carbon Dioxide 26 mmol/L (21-32); Chloride 107 mmol/L (98-108); Estimated Glomerular Filt Rate > 60; Glucose 80 mg/dL (70-99); Magnesium 1.7 mg/dL (1.8-2.4); Osmolality Calculated 289 mOsm/kg (285-295); Phosphorus 3.2 mg/dL (2.6-4.7); Potassium 3.2 mmol/L (3.5-5.1); Sodium 140 mmol/L (136-145)
[2022-02-18 17:36] LABS: Band Neutrophils Percent 0 % (0-6); Basophils Percent Manual 0 % (0-1); Eosinophils Percent Manual 0 % (1-6); Lymphocytes Absolute Manual 0.35 K/mm3 (1.1-4.5); Lymphocytes Percent Manual 10 % (18-44); Monocytes Absolute Manual 0.42 K/mm3 (0.1-0.90); Monocytes Percent Manual 12 % (3-9); Neutrophils Absolute Manual 2.73 K/mm3 (1.7-7.2); Neutrophils Percent Manual 78 % (46-73); Platelet Estimate Decreased (Adequate); Total Cells Counted 100
== END 2022-02-18 16:45 | disposition home or self-care (01) ==
LOC: CHSLAB 16:53
DX: T81.31XA Disruption of external operation (surgical) wound, not elsewhere classified, initial encounter (principal); K65.1 Peritoneal abscess; C22.8 Malignant neoplasm of liver, primary, unspecified as to type; Z79.2 Long term (current) use of antibiotics
CPT/HCPCS: 80053; 83735; 84100; 85025; 85055